=== PATIENT | female | born 1960 | race Caucasian/White ===

== ENCOUNTER → 2017-12-07 09:57 | Outpatient (CLI) | payer OTHER, SELFPAY ==
[2017-12-07 12:23] LABS: Absolute Neutrophil Count 3.3 X10^3/uL (2.0-7.7); Basophil# 0.02 X10^3/uL; Basophil% 0.4 % (0-1); Eosinophil# 0.14 X10^3/uL; Eosinophils% 2.6 % (0-5); Hemoglobin 14.1 g/dl (12.0-15.0); Mean Corp Hgb Conc 31.3 g/gl (32-36); Mean Corpuscular Hgb 26.6 pg (27.0-32.0); Mean Corpuscular Volume 84.7 fL (81-99); Mean Platelet Vol. 10.6 fl (6.2-12.0); Monocyte# 0.36 X10^3/uL; Monocyte% 6.6 % (0-10); Neutrophil # 3.26 X10^3/uL (2.7-7.7); Neutrophil % 59.4 % (47-70); Platelet Count 202 K/mm3 (150-450); RBC Distribution Width CV 14.7 % (11.6-14.6); RBC Distribution Width SD 45.7 fl (35.1-43.9); Red Blood Count 5.31 M/mm3 (4.2-5.4); White Blood Count 5.5 K/mm3 (4.4-11.0)
[2017-12-07 12:28] LABS: POSITIVE COUNT NO; POSITIVE DIFFERENTIAL NO; POSITIVE MORPHOLOGY NO
[2017-12-07 12:53] LABS: Anion Gap 7 (5-15); BUN 13 mg/dL (7-18); BUN/Creat Ratio 18.1 RATIO (10-20); Calcium,Total 8.7 mg/dL (8.5-10.1); Chloride 107 mmol/L (98-107); Creatinine, Serum 0.72 mg/dL (0.55-1.02); EST Glomerular Filtration Rate 88 mL/min (>60); Est Glom Filt Rate - Afr Amer 107 mL/min (>60); Glucose 127 mg/dL (74-106); Potassium 4.1 mmol/L (3.5-5.1); Sodium Level 140 mmol/L (136-145); Thyroid Stim Hormone (TSH) 2.24 uIU/mL (0.358-3.74)
== END ==
PROVIDERS: Family Provider Family Medicine; PCP Family Medicine; Visit Provider Family Medicine
DX: E11.9 Type 2 diabetes mellitus without complications (principal); E66.01 Morbid (severe) obesity due to excess calories
CPT/HCPCS: 36415; 80048; 84443; 85025

== ENCOUNTER → 2018-02-23 15:55 | Outpatient (CLI) | payer OTHER, SELFPAY ==
--- NOTE | 2018-02-23 15:56 | BI_ITS ---
MAMMOGRAPHY - BILATERAL SCREENING REASON FOR EXAM: Female, 58 years old. Routine annual screening examination. PERTINENT HISTORY: Grandmother with breast cancer. Aunt with breast cancer. History of the left breast discharge. TECHNIQUE: Digital bilateral breast mavis (3D mammographic acquisition) in the CC and MLO projections. 2-D mediolateral oblique (MLO) and craniocaudad (CC) views of both breasts were obtained. CAD: Full Field Digital Mammography with Computer Added Detection was performed. COMPARISON: Comparison is made with prior examination dated September 30, 2016. FINDINGS: Breast Composition: There are scattered areas of fibroglandular density. There are no dominant masses or suspicious calcifications. Stable benign-appearing bilateral axillary lymph nodes. No other significant abnormalities are identified. There has been no significant change since the prior study. BI/SCREENING MAMM (CAD), BILAT IMPRESSION: Stable bilateral screening mammogram. Yearly follow-up mammogram recommended. (A) ASSESSMENT CATEGORY: BIRADS Category 2: Benign. A letter regarding these results will be sent to the patient by the facility within 30 days. Approximately 10% of breast cancers are not detected by mammography. A normal mammogram should not delay biopsy of a clinically suspicious abnormality. [id number] Electronically Signed: Roger Birmingham MD at 8:48 EDT Tel [phone], Service support ,
== END ==
PROVIDERS: Family Provider Family Medicine; PCP Family Medicine; Visit Provider Obstetrics & Gynecology
DX: Z12.31 Encounter for screening mammogram for malignant neoplasm of breast (principal); Z80.3 Family history of malignant neoplasm of breast
CPT/HCPCS: 77063; 77067

== ENCOUNTER → 2019-02-22 16:56 | Outpatient (CLI) | payer OTHER, SELFPAY ==
--- NOTE | 2019-02-22 16:59 | BI_ITS ---
MAMMOGRAPHY - BILATERAL SCREENING REASON FOR EXAM: Female, 59 years old. Routine annual screening examination. PERTINENT HISTORY: Grandmother with breast cancer. Aunt with breast cancer. TECHNIQUE: Digital bilateral breast deborah (3D mammographic acquisition) in the CC and MLO projections. 2-D mediolateral oblique (MLO) and craniocaudad (CC) views of both breasts were obtained. CAD: Full Field Digital Mammography with Computer Added Detection was performed. COMPARISON: Comparison is made with prior examination dated February 23, 2015. FINDINGS: Breast Composition: There are scattered areas of fibroglandular density. There are no dominant masses or suspicious calcifications. Stable benign-appearing bilateral axillary lymph nodes. No other significant abnormalities are identified. There has been no significant change since the prior study. BI/SCREEN MAMM (CAD) W/DEBORAH BILAT IMPRESSION: Stable bilateral screening mammogram. Yearly follow-up mammogram recommended. (A) ASSESSMENT CATEGORY: BIRADS Category 2: Benign. A letter regarding these results will be sent to the patient by the facility within 30 days. Approximately 10% of breast cancers are not detected by mammography. A normal mammogram should not delay biopsy of a clinically suspicious abnormality. [id number] Electronically Signed: Roger Birmingham, at 8:25 EDT , Service support ,
== END ==
PROVIDERS: Family Provider Family Medicine; PCP Family Medicine; Referring Provider Nurse Practitioner Women's Health; Visit Provider Nurse Practitioner Women's Health
DX: Z12.31 Encounter for screening mammogram for malignant neoplasm of breast (principal)
CPT/HCPCS: 77063; 77067

== ENCOUNTER → 2019-09-27 09:28 | Outpatient (CLI) | payer OTHER, SELFPAY ==
[2019-03-22 13:18] VITALS: BMI 43.6
[2019-09-27 13:12] LABS: Anion Gap 5 (5-15); BUN 18 mg/dL (7-18); BUN/Creat Ratio 24.1 RATIO (10-20); Calcium,Total 8.9 mg/dL (8.5-10.1); Chloride 110 mmol/L (98-107); Cholesterol 146 mg/dL (200); Creatinine, Serum 0.75 mg/dL (0.55-1.02); EST Glomerular Filtration Rate 84 mL/min (>60); Est Glom Filt Rate - Afr Amer 102 mL/min (>60); Glucose 169 mg/dL (74-106); High Density Lipoprotein 49 mg/dL; Potassium 4.3 mmol/L (3.5-5.1); Sodium Level 140 mmol/L (136-145); Triglycerides 83 mg/dL; Very Low Density Lipoprotein 17 mg/dL (5-40)
[2019-09-27 13:22] LABS: Microalbumin,Random Urine 6.4 mg/L (NO RANGE EST.); Microalbumin:Creatinine Ratio 14.8 mg/g CRE (<30 mg/g CRE)
== END ==
PROVIDERS: PCP Family Medicine; Visit Provider Family Medicine
DX: E11.9 Type 2 diabetes mellitus without complications (principal)
CPT/HCPCS: 36415; 80048; 80061; 82043; 82570

== ENCOUNTER → 2020-03-13 12:55 | Outpatient (CLI) | payer OTHER, SELFPAY ==
[2019-03-22 13:18] VITALS: BMI 43.6
--- NOTE | 2020-03-13 12:56 | BI_ITS ---
MAMMOGRAPHY - BILATERAL SCREENING REASON FOR EXAM: Female, 60 years old. Routine annual screening examination. PERTINENT HISTORY: Grandmother with breast cancer. Aunt with breast cancer. TECHNIQUE: Digital bilateral breast deborah (3D mammographic acquisition) in the CC and MLO projections. 2-D mediolateral oblique (MLO) and craniocaudad (CC) views of both breasts were obtained. CAD: Full Field Digital Mammography with Computer Added Detection was performed. COMPARISON: Comparison is made with prior study dated 02/22/2019 and 02/23/2018. FINDINGS: Breast Composition: There are scattered areas of fibroglandular density. There are no dominant masses or suspicious calcifications. Stable benign appearing bilateral axillary lymph nodes. No other significant abnormalities are identified. There has been no significant change since the prior study. BI/SCREEN MAMM (CAD) W/DEBORAH BILAT IMPRESSION: Stable bilateral screening mammogram. Yearly follow-up mammogram recommended. (A) ASSESSMENT CATEGORY: BIRADS Category 2: Benign. A letter regarding these results will be sent to the patient by the facility within 30 days. Approximately 10% of breast cancers are not detected by mammography. A normal mammogram should not delay biopsy of a clinically suspicious abnormality. [id number] Electronically Signed: Roger Birmignham, at 14:34 EST , Service support ,
== END ==
PROVIDERS: PCP Family Medicine; Referring Provider Nurse Practitioner Women's Health; Visit Provider Nurse Practitioner Women's Health
DX: Z12.31 Encounter for screening mammogram for malignant neoplasm of breast (principal)
CPT/HCPCS: 77063; 77067

== ENCOUNTER → 2020-04-09 08:12 | Outpatient (CLI) | payer OTHER, SELFPAY ==
[2020-04-03 13:02] VITALS: BMI 44.3
[2020-04-09 12:45] LABS: Cholesterol 148 mg/dL (200); High Density Lipoprotein 47 mg/dL; Triglycerides 112 mg/dL; Very Low Density Lipoprotein 22 mg/dL (5-40)
[2020-04-09 12:53] LABS: Hemoglobin A1c 7.3 % (3.8-5.6)
== END ==
PROVIDERS: PCP Family Medicine; Visit Provider Family Medicine
DX: E11.9 Type 2 diabetes mellitus without complications (principal)
CPT/HCPCS: 36415; 80061; 83036

== ENCOUNTER 2020-07-10 16:21 | Outpatient (RCR) | payer OTHER, SELFPAY ==
[2020-04-03 13:02] VITALS: BMI 44.3
[2020-07-10] MEDS: COVID-19 VACC, MRNA(PFIZER)/PF 30 MCG/0.3 ML SYRINGE IM (17:25)
[2020-07-31] MEDS: COVID-19 VACC, MRNA(PFIZER)/PF 30 MCG/0.3 ML SYRINGE IM (17:00)
== END 2020-10-07 23:59 ==
LOC: IMMUN 16:21
PROVIDERS: PCP Family Medicine; Visit Provider Family Medicine
DX: Z23 Encounter for immunization (principal)
CPT/HCPCS: 0001A; 0002A; 91300

== ENCOUNTER → 2021-03-19 12:32 | Outpatient (CLI) | payer OTHER, SELFPAY ==
[2020-04-03 13:02] VITALS: BMI 44.3
--- NOTE | 2021-03-19 12:37 | BI_ITS ---
MAMMOGRAPHY - BILATERAL SCREENING REASON FOR EXAM: Female, 61 years old. Routine annual screening examination. PERTINENT HISTORY: Grandmother with breast cancer. Aunt with breast cancer. TECHNIQUE: Digital bilateral breast deborah (3D mammographic acquisition) in the CC and MLO projections. 2-D mediolateral oblique (MLO) and craniocaudad (CC) views of both breasts were obtained. CAD: Full Field Digital Mammography with Computer Added Detection was performed. COMPARISON: Comparison is made with prior study of 03/13/2020 and 02/22/2019. FINDINGS: Breast Composition: There are scattered areas of fibroglandular density. There are no dominant masses or suspicious calcifications. Stable small benign appearing bilateral axillary nodes. No other significant abnormalities are identified. There has been no significant change since the prior study. BI/SCRN MAMM (CAD)W/DEBORAH BILAT IMPRESSION: Stable bilateral screening mammogram. Yearly follow-up mammogram recommended. (A) ASSESSMENT CATEGORY: BIRADS Category 2: Benign. A letter regarding these results will be sent to the patient by the facility within 30 days. Approximately 10% of breast cancers are not detected by mammography. A normal mammogram should not delay biopsy of a clinically suspicious abnormality. [id number] Electronically Signed: Roger Birmingham MD at 14:13 EST , Service support ,
== END ==
PROVIDERS: PCP Family Medicine; Referring Provider Obstetrics & Gynecology; Visit Provider Obstetrics & Gynecology
DX: Z12.31 Encounter for screening mammogram for malignant neoplasm of breast (principal); Z80.3 Family history of malignant neoplasm of breast
CPT/HCPCS: 77063; 77067

== ENCOUNTER → 2021-11-26 | Outpatient (CLI) | payer OTHER, SELFPAY ==
[2021-11-26 11:19] LABS: AST(SGOT) 16 U/L (15-37); Alanine Aminotransfer ALT/SGPT 36 U/L (13-56); Albumin, Serum 3.6 g/dL (3.2-5.0); Alkaline Phosphatase 64 U/L (45-117); Anion Gap 7 (5-15); BUN 21 mg/dL (7-18); BUN/Creat Ratio 28.3 RATIO (10-20); Chloride 105 mmol/L (98-107); Cholesterol 156 mg/dL (200); Creatinine, Serum 0.74 mg/dL (0.55-1.02); EST Glomerular Filtration Rate 84 mL/min (>60); Est Glom Filt Rate - Afr Amer 102 mL/min (>60); Globulin 3.5 g/dL (2.2-4.2); Glucose 180 mg/dL (74-106); High Density Lipoprotein 50 mg/dL; Protein, Total 7.1 g/dL (6.4-8.2); Sodium Level 138 mmol/L (136-145); Triglycerides 99 mg/dL; Very Low Density Lipoprotein 20 mg/dL (5-40)
[2021-11-26 11:38] LABS: Microalbumin,Random Urine < 5.0 mg/L (NO RANGE EST.)
[2021-11-26 13:56] LABS: Hemoglobin A1c 7.7 % (3.8-5.6)
== END | disposition home or self-care (01) ==
LOC: MTLAB 07:20
PROVIDERS: PCP Family Medicine; Referring Provider Family Medicine; Visit Provider Family Medicine
DX: E11.9 Type 2 diabetes mellitus without complications (principal)
CPT/HCPCS: 36415; 80053; 80061; 82043; 82570; 83036

== ENCOUNTER → 2022-04-01 | Outpatient (CLI) | payer OTHER, SELFPAY ==
--- NOTE | 2022-04-01 13:29 | BI_ITS ---
MAMMOGRAPHY - BILATERAL SCREENING REASON FOR EXAM: Female, 62 years old. Routine annual screening examination. PERTINENT HISTORY: Grandmother with breast cancer. Aunt with breast cancer. TECHNIQUE: Digital bilateral breast deborah (3D mammographic acquisition) in the CC and MLO projections. 2-D mediolateral oblique (MLO) and craniocaudad (CC) views of both breasts were obtained. CAD: Full Field Digital Mammography with Computer Added Detection was performed. COMPARISON: Comparison is made with prior study dated 03/19/2021 and 03/13/2020. FINDINGS: Breast Composition: There are scattered areas of fibroglandular density. There are no dominant masses or suspicious calcifications. Stable benign-appearing bilateral axillary nodes. No other significant abnormalities are identified. There has been no significant change since the prior study. BI/SCRN MAMM (CAD)W/DEBORAH BILAT IMPRESSION: Stable bilateral screening mammogram. Yearly follow-up mammogram recommended. (A) ASSESSMENT CATEGORY: BIRADS Category 2: Benign. A letter regarding these results will be sent to the patient by the facility within 30 days. Approximately 10% of breast cancers are not detected by mammography. A normal mammogram should not delay biopsy of a clinically suspicious abnormality. [id number] Electronically Signed: Roger Birmingham MD at 14:26 EST ,
== END | disposition home or self-care (01) ==
LOC: OPBI 13:28
PROVIDERS: PCP Family Medicine; Visit Provider Obstetrics & Gynecology
DX: Z12.31 Encounter for screening mammogram for malignant neoplasm of breast (principal)
CPT/HCPCS: 77063; 77067

== ENCOUNTER → 2022-11-23 | Outpatient (CLI) | payer OTHER, SELFPAY ==
[2022-11-23 10:22] LABS: Absolute Lymphocyte Count 1.56 X10^3/uL (0.83-4.51); Absolute Neutrophil Count 3.6 X10^3/uL (2.0-7.7); Basophil# 0.03 X10^3/uL; Basophil% 0.5 % (0-1); Eosinophil# 0.14 X10^3/uL; Eosinophils% 2.5 % (0-5); Hematocrit 45.9 % (37-47); Hemoglobin 14.5 g/dL (12.0-15.0); Lymphocyte # 1.56 X10^3/ul (0.83-4.51); Lymphocyte % 27.4 % (19-41); Mean Corp Hgb Conc 31.6 g/dL (32-36); Mean Corpuscular Volume 85.3 fL (81-99); Mean Platelet Vol. 11.2 fl (6.2-12.0); Monocyte# 0.31 X10^3/uL; Monocyte% 5.4 % (0-10); NRBC Flagged by Analyzer 0 % (0-5); Neutrophil # 3.64 X10^3/uL (2.7-7.7); Neutrophil % 63.8 % (47-70); Platelet Count 228 K/mm3 (150-450); RBC Distribution Width CV 14.3 % (11.6-14.6); RBC Distribution Width SD 44.4 fl (35.1-43.9); Red Blood Count 5.38 M/mm3 (4.2-5.4); White Blood Count 5.7 K/mm3 (4.4-11.0)
[2022-11-23 10:31] LABS: Microalbumin,Random Urine 12.7 mg/L (NO RANGE EST.); Microalbumin:Creatinine Ratio 12.9 mg/g CRE (<30 mg/g CRE)
[2022-11-23 10:32] LABS: Hemoglobin A1c 7.1 % (3.8-5.6)
[2022-11-23 10:54] LABS: ALB/GLOB Ratio 1.1 RATIO (0.9-2.4); AST(SGOT) 16 U/L (15-37); Alanine Aminotransfer ALT/SGPT 36 U/L (13-56); Albumin, Serum 3.7 g/dL (3.2-5.0); Alkaline Phosphatase 61 U/L (45-117); Anion Gap 6 (5-15); BUN 16 mg/dL (7-18); BUN/Creat Ratio 22.4 RATIO (10-20); Calcium,Total 8.8 mg/dL (8.5-10.1); Chloride 109 mmol/L (98-107); Cholesterol 152 mg/dL (200); Creatinine, Serum 0.71 mg/dL (0.55-1.02); EST Glomerular Filtration Rate 88 mL/min (>60); Est Glom Filt Rate - Afr Amer 106 mL/min (>60); Globulin 3.4 g/dL (2.2-4.2); Glucose 183 mg/dL (74-106); High Density Lipoprotein 47 mg/dL; Potassium 4.2 mmol/L (3.5-5.1); Protein, Total 7.1 g/dL (6.4-8.2); Sodium Level 140 mmol/L (136-145); Triglycerides 122 mg/dL; Very Low Density Lipoprotein 24 mg/dL (5-40)
== END | disposition home or self-care (01) ==
LOC: MTLAB 09:06
PROVIDERS: PCP Family Medicine; Referring Provider Family Medicine; Visit Provider Family Medicine
DX: E11.9 Type 2 diabetes mellitus without complications (principal)
CPT/HCPCS: 36415; 80053; 80061; 82043; 82570; 83036; 85025

== ENCOUNTER → 2023-05-26 | Outpatient (CLI) | payer OTHER, SELFPAY ==
--- NOTE | 2023-05-26 13:00 | BI_ITS ---
MAMMOGRAPHY - BILATERAL SCREENING REASON FOR EXAM: Female, 63 years old. Routine annual screening examination. PERTINENT HISTORY: Grandmother with breast cancer. Aunt with breast cancer. TECHNIQUE: Digital bilateral breast deborah (3D mammographic acquisition) in the CC and MLO projections. 2-D mediolateral oblique (MLO) and craniocaudad (CC) views of both breasts were obtained. CAD: Full Field Digital Mammography with Computer Added Detection was performed. COMPARISON: Comparison is made with prior study dated April 01, 2022 and March 19, 2021. FINDINGS: Breast Composition: There are scattered areas of fibroglandular density. There are no dominant masses or suspicious calcifications. Stable small benign-appearing bilateral axillary lymph nodes. No other significant abnormalities are identified. There has been no significant change since the prior study. BI/SCRN MAMM (CAD)W/DEBORAH BILAT IMPRESSION: Stable bilateral screening mammogram. Yearly follow-up mammogram recommended. (A) ASSESSMENT CATEGORY: BIRADS Category 2: Benign. A letter regarding these results will be sent to the patient by the facility within 30 days. Approximately 10% of breast cancers are not detected by mammography. A normal mammogram should not delay biopsy of a clinically suspicious abnormality. [id number] Electronically Signed: Roger Birmingham MD at 14:49 EST ,
--- OUTSIDE RECORDS SUMMARY | 2023-05-26 13:26 | XMS RPT_ITS | CCD ---
Author Name Unknown Address [address] [place] [address] Organization [facility] Care Team Providers Care Tack Driller Name Role Phone Kaci Polo MD Unavailable [phone] Medications Completed/Discontinued Medications Medication Drug Class(es) Dates Sig (Normalized) Sig (Original) nystatin 713295 unt/ml topical cream (1 source) Polyene Antifungal Start: 01-17-2017 NYSTATIN 155304 UNIT/GM CREA twice daily as needed NYSTATIN [id number] Ana Mckeon [employer] Problems Problem Classification Problem Date Documented Da te Episodic/Chronic Unclassified (1 source) No current problems or disability 01-17-2017 Plan of Treatment Date Care Activity Detail Author [place] [facility] cassidy's Care Additional Source Comments FOR RECORDS PERTAINING TO PATIENTS WHO ARE OR HAVE BEEN ENROLLED IN A CHEMICAL DEPENDENCY/SUBSTANCEABUSE PROGRAM, SOME INFORMATION MAY BE OMITTED. This clinical summary was aggregated from multiple sources. Caution should be exercised in using it in the provision of clinical care. This summary normalizes information from multiple sources, and as a consequence, information in this document may materially change the coding, format and clinical context of patient data. In addition, data may be omitted in some cases. CLINICAL DECISIONS SHOULD BE BASED ON THE PRIMARY CLINICAL RECORDS. [employer] [facility]. provides no warranty or guarantee of the accuracy or completeness of information in this document.
== END | disposition home or self-care (01) ==
LOC: OPBI 12:56
PROVIDERS: PCP Family Medicine; Referring Provider Nurse Practitioner Women's Health; Visit Provider Nurse Practitioner Women's Health
DX: Z12.31 Encounter for screening mammogram for malignant neoplasm of breast (principal)
CPT/HCPCS: 77063; 77067

== ENCOUNTER → 2023-11-29 | Outpatient (CLI) | payer OTHER, SELFPAY ==
[2023-11-29 12:36] LABS: Absolute Lymphocyte Count 1.75 X10^3/uL (0.83-4.51); Absolute Neutrophil Count 3.4 X10^3/uL (2.0-7.7); Basophil# 0.03 X10^3/uL; Basophil% 0.5 % (0-1); Eosinophil# 0.14 X10^3/uL; Eosinophils% 2.5 % (0-5); Hematocrit 45.3 % (37-47); Hemoglobin 13.9 g/dL (12.0-15.0); Lymphocyte # 1.75 X10^3/ul (0.83-4.51); Lymphocyte % 30.6 % (19-41); Mean Corp Hgb Conc 30.7 g/dL (32-36); Mean Corpuscular Hgb 25.9 pg (27.0-32.0); Mean Corpuscular Volume 84.5 fL (81-99); Mean Platelet Vol. 10.8 fl (6.2-12.0); Monocyte# 0.38 X10^3/uL; Monocyte% 6.7 % (0-10); NRBC Flagged by Analyzer 0 % (0-5); Neutrophil % 59.5 % (47-70); Platelet Count 237 K/mm3 (150-450); RBC Distribution Width CV 14.8 % (11.6-14.6); RBC Distribution Width SD 45.4 fl (35.1-43.9); Red Blood Count 5.36 M/mm3 (4.2-5.4); White Blood Count 5.7 K/mm3 (4.4-11.0)
[2023-11-29 12:48] LABS: Microalbumin,Random Urine 7.1 mg/L (NO RANGE EST.); Microalbumin:Creatinine Ratio 9.3 mg/g CRE (<30 mg/g CRE)
[2023-11-29 12:53] LABS: ALB/GLOB Ratio 1.1 RATIO (0.9-2.4); AST(SGOT) 18 U/L (15-37); Alanine Aminotransfer ALT/SGPT 27 U/L (13-56); Albumin, Serum 3.8 g/dL (3.2-5.0); Alkaline Phosphatase 58 U/L (45-117); Anion Gap 7 (5-15); BUN 15 mg/dL (7-18); BUN/Creat Ratio 20.4 RATIO (10-20); Chloride 105 mmol/L (98-107); Cholesterol 159 mg/dL (200); Creatinine, Serum 0.73 mg/dL (0.55-1.02); EST Glomerular Filtration Rate 85 mL/min (>60); Est Glom Filt Rate - Afr Amer 102 mL/min (>60); Globulin 3.4 g/dL (2.2-4.2); Glucose 142 mg/dL (74-106); High Density Lipoprotein 57 mg/dL; Potassium 4.1 mmol/L (3.5-5.1); Protein, Total 7.2 g/dL (6.4-8.2); Sodium Level 139 mmol/L (136-145); Triglycerides 86 mg/dL; Very Low Density Lipoprotein 17 mg/dL (5-40)
[2023-11-29 14:06] LABS: Hemoglobin A1c 6.6 % (3.8-5.6)
== END | disposition home or self-care (01) ==
LOC: MTLAB 10:05
PROVIDERS: PCP Family Medicine; Referring Provider Family Medicine; Visit Provider Family Medicine
DX: Z00.00 Encounter for general adult medical examination without abnormal findings (principal); E66.01 Morbid (severe) obesity due to excess calories; E11.9 Type 2 diabetes mellitus without complications
CPT/HCPCS: 36415; 80053; 80061; 82043; 82570; 83036; 85025

== ENCOUNTER → 2024-05-31 | Outpatient (CLI) | payer MEDICARE, SELFPAY ==
--- NOTE | 2024-05-31 13:33 | BI_ITS ---
PROCEDURE: SCRN MAMM (CAD)W/DEBORAH BILAT REASON FOR EXAM: F, Age 64 y/o, grandmother with breast cancer. Aunt with breast cancer. TECHNIQUE: Bilateral screening digital breast tomosynthesis with 2D and 3D images. Computer aided detection. COMPARISON: Prior exam(s) dating back to comparison is made with prior study dated April 01, 2022.. FINDINGS: There are scattered areas of fibroglandular density. Stable small bilateral axillary lymph nodes. No suspicious masses, areas of developing architectural distortion, or suspicious calcifications. Stable examination. BI/SCRN MAMM (CAD)W/DEBORAH BILAT IMPRESSION: BI-RADS 2: BENIGN. RECOMMEND ANNUAL MAMMOGRAPHIC SCREENING. Follow-up code: Routine Follow-up The patient will be notified of the results by letter. Reading Location: [place] [id number]
== END | disposition home or self-care (01) ==
PROVIDERS: PCP Family Medicine; Referring Provider Family Medicine; Visit Provider Family Medicine
DX: Z12.31 Encounter for screening mammogram for malignant neoplasm of breast (principal)
CPT/HCPCS: 77063; 77067

== ENCOUNTER 2024-06-18 10:02 | Observation (INO) | payer MEDICARE, SELFPAY ==
[2024-06-18] VITALS (8 sets, daily range): BP systolic 148–194; BP diastolic 55–91; PULSE 87–103; RESP 16–28; TEMP 35.9–37; O2SAT 93–98; BMI 44.6; BMI 44.2
--- NOTE | 2024-06-18 10:21 | CT_ITS ---
EXAM: STROKE BRAIN/HEAD WITHOUT CONT CLINICAL HISTORY: Nausea and vomiting. Dizziness and weakness for 2 days. COMPARISON: None. TECHNIQUE: Multiple axial tomographic images were obtained without intravenous contrast administration. Coronal and sagittal reconstruction was obtained as well. FINDINGS: Normal cerebral parenchyma. No evidence of hydrocephalus. No acute abnormality is seen. CT/STROKE Brain/Head without Cont IMPRESSION: No acute abnormality is seen. The results were communicated to Dr. Khan the referring physician. Reading Location: [id number]
--- NOTE | 2024-06-18 10:23 | ED.VIS.STROK ---
HPI History of Present Illness Chief Complaint: Nausea/Vomiting/Diarrhea Informant: patient and spouse/S.O. Narrative Narrative: 64-year-old female presenting with vomiting started at the same time as vertigo yesterday around 1400 as she got out of bed, sudden onset. She states since then, whenever she gets up or moves her head the vertigo is worse, but it has never gone away and there is a mild baseline of spinning sensation. She states the vomiting does not seem to be associated with the vertigo as it worsens or lessens. She denies any abdominal pain or diarrhea. She has had some subjective fevers, feeling hot that seems to precede her vomiting. No recent URIs or other viral syndromes in the past couple weeks. She denies any earache, hearing change or tinnitus, or roaring/hearing disturbance. She denies headaches. She states has been difficult to focus with her vision but she denies any vision loss or field cuts. She states she has had difficulty with balance and walking since this started yesterday. She has never had vertigo before. She states she additionally feels little lightheaded, and like she needs some fluids because of vomiting. [facility] Medical History Family history of breast cancer History of uterine fibroid Seasonal allergies Rosacea Home Medications ?Medication ?Instructions ?Recorded ?Last Taken ?Type flaxseed oil 1,000 mg capsule 1,000 mg PO DAILY 04/03/20 06/17/24 History multivitamin 1 tab PO DAILY 04/03/20 06/17/24 History azelaic acid 15 % topical gel 1 applic topical BID 05/20/22 06/17/24 History (Finacea) metformin 500 mg tablet 500 mg PO BID 05/20/22 06/17/24 History albuterol sulfate 90 mcg/actuation 2 puff inhalation Q4-6H PRN 05/26/23 Unknown History aerosol inhaler shortness of breath or wheezing glipizide 10 mg tablet, extended 10 mg PO DAILY 05/26/23 06/17/24 History release 24 hr ipratropium bromide 21 mcg (0.03 2 spray intranasal BID PRN allergy 05/26/23 06/17/24 History %) nasal spray symptoms ascorbate calcium (vitamin C) 500 500 mg PO DAILY 06/18/24 06/17/24 History mg tablet pioglitazone 15 mg tablet 15 mg PO DAILY 06/18/24 06/17/24 History Allergy/AdvReac Type Severity Reaction Status Date / Time No Known Allergies Allergy Verified 06/07/24 13:49 Family History Father Diabetes Mother Crohns disease Grandmother Breast cancer Aunt Breast cancer Surgical History S/P CHELSIE (total abdominal hysterectomy) History of tonsillectomy Social History Smoking Status: Never smoker alcohol intake: current details: social substance use type: does not use caffeine: Yes what type of physical activity do you participate in: walking, bicycling and weight training frequency: 3-4 times per week seatbelt use: always do you feel safe at home: Yes additional social history: - [employer]- Retired Patient works at [employer] ED Constitutional Constitutional ED: Reports chills, fever(s) and subjective Eyes Eyes: Denies change in vision or diplopia ENT ENT ED: Reports vertigo; Denies abnormal hearing, ear pain, rhinorrhea, sore throat or tinnitus Cardiovascular Cardiovascular: Denies chest pain or palpitations Respiratory/Chest Respiratory/Chest: Denies cough or dyspnea Gastrointestinal Gastrointestinal: Reports nausea and vomiting; Denies abdominal pain or diarrhea Genitourinary Genitourinary ED: Denies dysuria or hematuria Musculoskeletal Musculoskeletal: Denies back pain or neck pain Integumentary Denies abscess or rash Neurologic Neurologic: Reports abnormal gait, disequilibrium and dizziness; Denies headache(s), paresthesias or weakness Psychiatric Psychiatric: Denies anxiety or suicidal thoughts EXAM Physical Exam Const Vital Signs: 06/18/24 10:03 06/18/24 10:21 06/18/24 10:21 Temperature 96.6 F L Temperature Source Temporal Pulse Rate 90 103 H Respiratory Rate 16 28 H Blood Pressure 194/78 H 169/73 H Blood Pressure Mean 116 105 Pulse Ox 98 97 98 Oxygen Delivery Method Room Air Room Air Room Air 06/18/24 12:03 Temperature Temperature Source Pulse Rate 92 Respiratory Rate 18 Blood Pressure 160/91 H Blood Pressure Mean 114 Pulse Ox 93 Oxygen Delivery Method Room Air Positive well nourished and well developed General Appearance ED: well developed and NAD HEENT Reports TM's clear and moist mucous membranes normocephalic and atraumatic Tympanic Membrane ED: Yes TM's clear Eyes PERRL and EOMs intact bilaterally Eyes Narrative: Non-fatigable horizontal nystagmus to the right at rest. No vertical, rotatory, nor direction changing nystagmus. Neck full ROM and supple Resp normal respiratory effort and clear to auscultation bilaterally Cardio regular rate, regular rhythm and no murmurs GI non-tender and non-distended Auscultation: normoactive bowel sounds Palpation: soft Back/Spine no CVA tenderness General Back: other FROM Extremity normal to inspection General Extremety ED: Negative for edema, pulses abnormal or tenderness General Extremity: Negative for edema or pulses abnormal Neuro oriented x3, CN's II-XII intact bilaterally and no sensory deficits noted Neuro Narrative: No dysmetria. No dysarthria. No aphasia. Sensorium / Orientation: awake and alert Motor Exam: strength 5/5 throughout Psych mental status grossly normal Skin no rashes or lesions noted and no wounds NIHSS NIHSS Initial: 1a Level of Consciousness: 0 1b LOC Questions (Score 2 if aphasic/stupor): 0 1c LOC Commands (Only score 1st attempt): 0 2 Best Gaze (If aphasic, use reflexive mvmts.): 0 3 Visual: 0 4 Facial Palsy: 0 5 Motor Arm Right (UN = amputation/fusion): 0 5 Motor Arm Left: 0 6 Motor Leg Right: 0 6 Motor Leg Left: 0 7 Limb ataxia (Only + if out of proportion): 0 8 Sensory (Aphasia/stupor=0 or 1, coma=2): 0 9 Best Language: 0 10 Dysarthria (mute, coma=2, intubated=UN): 0 11 Extinction and Inattention (only scored if +): 0 Total Score: 0 MDM MDM MDM Narrative Medical decision making narrative: Patient presenting with acute vestibular syndrome, however her blood pressure is concerning, elevated at 194/78 so considering the possibility of a posterior circulation infarct/stroke, and the patient is within 24 hours of the onset but outside of thrombolytic window, obtaining CT angiography of the head and neck as well as a plain CT phase of the head. In the meantime if she passes dysphagia screen we will also give her meclizine. Her NIH is 0. Her skew test is normal. She does not have nystagmus that changes directions, the fast components consistently to the right. With her jolt test, I am getting equivocal results. She states that is difficult to focus, but am not definitively consistently seen a catch-up saccade. For these reasons I think she needs to undergo the CT scanning in addition to treating her for the possibility of peripheral etiologies I spoke with radiologist concerning the CT scans, I reviewed them and on my interpretation there is no bleed or LVO, he was in agreement. Patient has passed her dysphagia screen so we gave her Zofran and meclizine. She states her symptoms are little better but on reevaluation, she still has persistent right sided nystagmus, and I repeated her jolt test, which is normal. This is concerning for possible central etiology and she still has vertiginous symptoms, and on reevaluation her blood pressure is 180/77. She needs to be admitted for further evaluation and MRI. Lab Data Attestation: I reviewed the patient's lab results. Labs: Laboratory Results - last 24 hr 06/18/24 06/18/24 06/18/24 10:30 11:30 12:45 WBC 7.4 RBC 5.41 H Hgb 14.5 Hct 45.9 MCV 84.8 MCH 26.8 L MCHC 31.6 L RDW Std Deviation 44.5 H RDW Coeff of Lee 14.4 Plt Count 226 MPV 10.9 Immature Gran % (Auto) 0.300 Neut % (Auto) 72.7 H Lymph % (Auto) 21.0 [place] % (Auto) 4.6 Eos % (Auto) 0.9 Baso % (Auto) 0.5 Absolute Neuts (auto) 5.4 Absolute Lymphs (auto) 1.55 Nucleated RBC % 0 Sodium Cancelled 137 Potassium Cancelled 4.5 Chloride Cancelled 109 H Carbon Dioxide Cancelled 20.0 L Anion Gap Cancelled 8 BUN Cancelled 14 Creatinine Cancelled 0.64 Estim Creat Clear Calc Cancelled 91.73 Est GFR (MDRD) Af Amer Cancelled 119 Est GFR (MDRD) Non-Af Cancelled 98 BUN/Creatinine Ratio Cancelled 21.7 H Glucose Cancelled 190 H Calcium Cancelled 8.4 L POC Glucose 171 H Radiography Diagnostic Testing: Clinical Impression(s) from Imaging Studies Brain CT 06/18/24 10:21 IMPRESSION: No acute abnormality is seen. The results were communicated to Dr. Khan the referring physician. Reading Location: [id number] Head/Neck CTA 06/18/24 10:52 IMPRESSION: RIGHT CAROTID: Minimal plaque at the origin of the left internal carotid artery causing less than 50% stenosis. LEFT CAROTID: Unremarkable VERTEBRALS: Unremarkable INTRACRANIAL: Unremarkable One or more dose reduction techniques were used (e.g., Automated exposure control, adjustment of the mA and/or kV according to patient size, use of iterative reconstruction technique). Reading Location: [id number] Rhythm Strip Rhythm Strip: Sinus Rhythm Rate: 87 Ectopy: None EKG Initial EKG: Attestation: I personally reviewed and interpreted this EKG as follows: Interpretation: Sinus Rhythm and No Acute Injury Pattern Comments: Nml axis & intervals; nml EKG Management Discussion w/another healthcare provider: Hospitalist and Radiologist Stroke Documentation Questions Stroke Team Activated: No (stroke not most likely etiology, NIH 0) Was Patient considered for Endovascular Intervention?: No-CTA negative, determined not to be an endovascular candidate IV Thrombolytic Administered: No (timing) Discharge Plan Dx/Rx/DC Orders Clinical Impression: Acute vestibular syndrome, Elevated blood pressure reading, Ataxia Disposition Disposition: Acute Care Hospital [facility]
[2024-06-18] MEDS: Meclizine HCl 25 MG Tablet PO (10:39)
[2024-06-18 10:41] LABS: Absolute Lymphocyte Count 1.55 X10^3/uL (0.83-4.51); Absolute Neutrophil Count 5.4 X10^3/uL (2.0-7.7); Basophil# 0.04 X10^3/uL; Basophil% 0.5 % (0-1); Eosinophil# 0.07 X10^3/uL; Eosinophils% 0.9 % (0-5); Hematocrit 45.9 % (37-47); Hemoglobin 14.5 g/dL (12.0-15.0); Lymphocyte # 1.55 X10^3/ul (0.83-4.51); Mean Corp Hgb Conc 31.6 g/dL (32-36); Mean Corpuscular Hgb 26.8 pg (27.0-32.0); Mean Corpuscular Volume 84.8 fL (81-99); Mean Platelet Vol. 10.9 fl (6.2-12.0); Monocyte# 0.34 X10^3/uL; Monocyte% 4.6 % (0-10); NRBC Flagged by Analyzer 0 % (0-5); Neutrophil # 5.35 X10^3/uL (2.7-7.7); Neutrophil % 72.7 % (47-70); Platelet Count 226 K/mm3 (150-450); RBC Distribution Width CV 14.4 % (11.6-14.6); RBC Distribution Width SD 44.5 fl (35.1-43.9); Red Blood Count 5.41 M/mm3 (4.2-5.4); White Blood Count 7.4 K/mm3 (4.4-11.0)
--- NOTE | 2024-06-18 10:52 | CT_ITS ---
PROCEDURE: STROKE CTA HEAD AND NECK W/CON REASON FOR EXAM: Nausea and vomiting. Dizziness and weakness for 2 days. TECHNIQUE: CTA imaging of the head and neck from the aortic arch to the skull vertex with intravenous contrast. 3D reconstructions. CONTRAST: COMPARISON: None. # of known CTs in the past 12 months: 0 # of known Cardiac Nuclear Medicine Studies in the past 12 months: 0 FINDINGS: Aortic Arch: Normal size and branching pattern. No significant atherosclerotic plaque. Brachiocephalic and Subclavians: Unremarkable RIGHT Carotid: Right CCA: Unremarkable. Right ICA: Minimal plaque at the origin of the right internal carotid artery. Maximum stenosis (NASCET): <50 % Right ECA: Unremarkable. LEFT Carotid: Left CCA: Unremarkable. Left ICA: Unremarkable. Maximum stenosis (NASCET): % Left ECA: Unremarkable. Vertebrals: Codominant. Arise from the subclavians. Both vertebrals form the basilar. RIGHT Vertebral: Unremarkable. LEFT Vertebral: Unremarkable. No intracranial aneurysms or large vascular malformations are identified. Anterior cerebral arteries: Unremarkable. Middle cerebral arteries: Unremarkable. Basilar artery: Unremarkable. Posterior cerebral arteries: Unremarkable. Other major branches of the posterior circulation: Unremarkable. Major venous structures: Unremarkable. Other findings: No lymphadenopathy. Lung apices are clear. Bones are unremarkable. CT/STROKE CTA Head AND Neck W/Con IMPRESSION: RIGHT CAROTID: Minimal plaque at the origin of the left internal carotid artery causing less than 50% stenosis. LEFT CAROTID: Unremarkable VERTEBRALS: Unremarkable INTRACRANIAL: Unremarkable One or more dose reduction techniques were used (e.g., Automated exposure contr ol, adjustment of the mA and/or kV according to patient size, use of iterative reconstruction technique). Reading Location: [id number]
[2024-06-18] MEDS: Ondansetron 4 MG/2 ML Vial IV (11:01)
[2024-06-18 12:07] LABS: Anion Gap 8 (5-15); BUN 14 mg/dL (7-18); BUN/Creat Ratio 21.7 RATIO (10-20); Calcium,Total 8.4 mg/dL (8.5-10.1); Chloride 109 mmol/L (98-107); Creatinine, Serum 0.64 mg/dL (0.55-1.02); EST Glomerular Filtration Rate 98 mL/min (>60); Est Glom Filt Rate - Afr Amer 119 mL/min (>60); Estimated Creatinine Clearance 91.73 ml/min; Glucose 190 mg/dL (74-106); Potassium 4.5 mmol/L (3.5-5.1); Sodium Level 137 mmol/L (136-145)
--- NOTE | 2024-06-18 12:56 | PCM.HP.STD ---
HPI - General General Date of Admission: 06/18/24 Date of Service: 06/18/24 Chief Complaint: Vertigo HPI Narrative BARBARA PANG, is a 64 F who presented to [facility] ED on 06/18/2024 with vertigo. Patient developed acute onset vertigo with nausea and vomiting on the afternoon of 06/17 around 2 PM. She noted that the vertigo was worse with movement and felt like the room was spinning. Started shortly after she got out of bed. It improved with rest but did not fully go away. She also reports mild subjective fevers along with this, stating that she feels hot prior to her vomiting. Denies any recent URIs or other viral syndromes in the past couple weeks. Denies any earache, hearing change or tinnitus. States it has been difficult to focus with her vision but she denies any vision loss or field cuts. She does report having difficulty with balance and walking since this started yesterday. She has never had vertigo before. Given these findings, she came in for further evaluation. In the ED she was found to be hypertensive to the 160s to 190s systolic. She denies any history of hypertension. She otherwise was hemodynamically stable on room air. Initial NIHSS score of 0. CT brain and CTA head/neck were unremarkable. However, given her new onset symptoms and concern for possible central etiology, hospitalist was contacted for admission. I saw the patient at bedside in the ED. Patient was laying back comfortably in bed and in no acute distress. She reported mild dizziness with nausea currently, improved from arrival. Continues to have significant dizziness with motion. She otherwise states that she is starting to feel hungry and would like to have some food soon. She denies any current fevers or chills. No other acute concerns at this time. [facility] Medical History Family history of breast cancer History of uterine fibroid Seasonal allergies Rosacea Home Medications ?Medication ?Instructions ?Recorded ?Last Taken ?Type flaxseed oil 1,000 mg capsule 1,000 mg PO DAILY 04/03/20 06/17/24 History multivitamin 1 tab PO DAILY 04/03/20 06/17/24 History azelaic acid 15 % topical gel 1 applic topical BID 05/20/22 06/17/24 History (Finacea) metformin 500 mg tablet 500 mg PO BID 05/20/22 06/17/24 History albuterol sulfate 90 mcg/actuation 2 puff inhalation Q4-6H PRN 05/26/23 Unknown History aerosol inhaler shortness of breath or wheezing glipizide 10 mg tablet, extended 10 mg PO DAILY 05/26/23 06/17/24 History release 24 hr ipratropium bromide 21 mcg (0.03 2 spray intranasal BID PRN allergy 05/26/23 06/17/24 History %) nasal spray symptoms ascorbate calcium (vitamin C) 500 500 mg PO DAILY 06/18/24 06/17/24 History mg tablet pioglitazone 15 mg tablet 15 mg PO DAILY 06/18/24 06/17/24 History Allergy/AdvReac Type Severity Reaction Status Date / Time No Known Allergies Allergy Verified 06/07/24 13:49 Family History Father Diabetes Mother Crohns disease Grandmother Breast cancer Aunt Breast cancer Surgical History S/P CHELSIE (total abdominal hysterectomy) History of tonsillectomy Social History Smoking Status: Never smoker alcohol intake: current details: social substance use type: does not use caffeine: Yes what type of physical activity do you participate in: walking, bicycling and weight training frequency: 3-4 times per week seatbelt use: always do you feel safe at home: Yes additional social history: - [employer]- Retired Patient works at [employer] Constitutional Constitutional: Denies chills, fatigue, fever(s) or weakness Eyes Eyes: Denies change in vision Cardiovascular Cardiovascular: Denies chest pain Respiratory/Chest Respiratory/Chest: Denies shortness of breath at rest Gastrointestinal Gastrointestinal: Denies abdominal pain Genitourinary Genitourinary: Denies dysuria Musculoskeletal Musculoskeletal: Denies arthralgias or myalgias Neurologic Neurologic: Reports disequilibrium and dizziness; Denies abnormal speech, confusion, focal weakness, headache(s), numbness or tingling Vital Signs Vital Signs Vital Signs: 06/18/24 10:03 06/18/24 10:21 06/18/24 10:21 Temperature 96.6 F L Temperature Source Temporal Pulse Rate 90 103 H Respiratory Rate 16 28 H Blood Pressure 194/78 H 169/73 H Blood Pressure Mean 116 105 Pulse Ox 98 97 98 Oxygen Delivery Method Room Air Room Air Room Air 06/18/24 12:03 Temperature Temperature Source Pulse Rate 92 Respiratory Rate 18 Blood Pressure 160/91 H Blood Pressure Mean 114 Pulse Ox 93 Oxygen Delivery Method Room Air Weight Weight: 121.7 kg Body Mass Index (BMI) 44.6 Physical Exam Const alert, oriented x3 and no apparent distress Constitutional Narrative: Pleasant upper middle-aged female, class III obesity, mildly fatigued appearing, otherwise laying back comfortably in bed, conversing normally, in no acute distress. General Appearance: cooperative and comfortable HEENT normocephalic, head/scalp atraumatic, hearing grossly normal bilaterally, nasal mucous membranes and turbinates normal and moist oral mucous membranes Eyes PERRL, EOMs intact bilaterally and conjunctivae normal Neck full ROM Chest inspection of chest normal Resp normal respiratory effort, normal air movement, no use of accessory muscles and clear to auscultation bilaterally Cardio regular rate, regular rhythm, no murmurs and peripheral pulses 2+ throughout GI normal to inspection, nondistended, normoactive bowel sounds, soft to palpation, non-tender and non-distended Back/Spine normal ROM Extremity normal to inspection, full ROM and no pedal edema Skin no rashes or lesions noted Neuro oriented x3, moves all extremities and no focal motor deficits Coordination / Balance: [id number] test normal Speech: speech normal Motor Exam: strength 5/5 throughout Psych mental status grossly normal Results Lab / Micro Data 06/18/24 10:30 06/18/24 11:30 Labs: Laboratory Results - last 24 hr 06/18/24 10:30: WBC 7.4, RBC 5.41 H, Hgb 14.5, Hct 45.9, MCV 84.8, MCH 26.8 L, MCHC 31.6 L, RDW Std Deviation 44.5 H, RDW Coeff of Lee 14.4, Plt Count 226, MPV 10.9, Immature Gran % (Auto) 0.300, Neut % (Auto) 72.7 H, Lymph % (Auto) 21.0, [place] % (Auto) 4.6, Eos % (Auto) 0.9, Baso % (Auto) 0.5, Absolute Neuts (auto) 5.4, Absolute Lymphs (auto) 1.55, Nucleated RBC % 0, Sodium Cancelled, Potassium Cancelled, Chloride Cancelled, Carbon Dioxide Cancelled, Anion Gap Cancelled, BUN Cancelled, Creatinine Cancelled, Estim Creat Clear Calc Cancelled, Est GFR (MDRD) Af Amer Cancelled, Est GFR (MDRD) Non-Af Cancelled, BUN/Creatinine Ratio Cancelled, Glucose Cancelled, Calcium Cancelled 06/18/24 11:30: Sodium 137, Potassium 4.5, Chloride 109 H, Carbon Dioxide 20.0 L, Anion Gap 8, BUN 14, Creatinine 0.64, Estim Creat Clear Calc 91.73, Est GFR (MDRD) Af Amer 119, Est GFR (MDRD) Non-Af 98, BUN/Creatinine Ratio 21.7 H, Glucose 190 H, Calcium 8.4 L Rhythm Strip Rhythm Strip: Sinus Rhythm Rate: 87 Ectopy: None Imaging Radiology Impression Brain CT 06/18/24 10:21 IMPRESSION: No acute abnormality is seen. The results were communicated to Dr. Khan the referring physician. Reading Location: [id number] Head/Neck CTA 06/18/24 10:52 IMPRESSION: RIGHT CAROTID: Minimal plaque at the origin of the left internal carotid artery causing less than 50% stenosis. LEFT CAROTID: Unremarkable VERTEBRALS: Unremarkable INTRACRANIAL: Unremarkable One or more dose reduction techniques were used (e.g., Automated exposure control, adjustment of the mA and/or kV according to patient size, use of iterative reconstruction technique). Reading Location: [id number] Assessment & Plan Assessment/Plan (1) Ataxia: (2) Elevated blood pressure reading: (3) Diabetes: PLAN: Plan Patient is a 64-year-old female who presented to [facility] ED on 06/18/2024 with new onset vertigo. 1. New onset vertigo, CVA rule out ? Admit under observation status to PCU. Neurology consulted. PT/OT/case management consulted. Orders placed per stroke protocol order set. CT brain and CTA head/neck negative. MRI brain and echo ordered. Lipid panel, A1c and TSH ordered. 2. Type 2 diabetes mellitus ? A1c 6.6%, stable from previous. Continue home metformin, will hold pioglitazone and glipizide while inpatient. No need to start sliding scale insulin with glucose checks with meals at this time. 3. Elevated BP readings ? BP elevated to the 160s to 190s systolic in the ED. Not starting any blood pressure medications for now as we are allowing permissive hypertension in setting of possible stroke. Monitor closely. 4. Class III obesity ? BMI 44 on admit. Encouraged lifestyle modifications. Complicates hospital course, care and prognosis. DVT prophylaxis: SCDs CODE STATUS: Full code, verified Expected disposition: Home, TBD Total clinical time spent by myself addressing the patient's medical issues, reviewing all the data, and collaborating with patient's care team: 55 minutes. Charges/Coding Visit Charges Inpatient E&M: 57775 Init Hosp L2
--- NOTE | 2024-06-18 13:02 | MRI_ITS ---
PROCEDURE: Noncontrast MRI of the brain. REASON FOR EXAM: Vertigo for 2 days. Unsteady gait. Evaluate for stroke. TECHNIQUE: Multiplanar, multisequence MRI images of the brain were obtained without IV contrast. CONTRAST: COMPARISON: Noncontrast CT brain 06/18/2024 FINDINGS: Bones of the calvarium are intact. Included upper cervical spinal cord unremarkable. The orbits, sella, and parasellar structures show no specific abnormality. Paranasal sinuses and mastoid air cells are clear. There is some nonspecific protuberance or convex margin of the soft tissues or subcutaneous fat of the anterior right frontal region on image 17 of the sagittal T1 sequence. No discrete soft tissue mass or underlying bony abnormality. Major basilar intracranial flow voids are present. No extra-axial fluid collection or midline shift. Ramirez-white matter differentiation is maintained. No cerebellopontine angle mass lesion. The basilar cisterns are clear. No areas of restricted diffusion. No significant focal white matter lesions on the FLAIR sequence. No middle ear effusion. Ventricles appear normal in caliber and configuration. MRI/Brain without Contrast IMPRESSION: No acute intracranial abnormality. No evidence of acute cerebral infarction. No significant focal white matter lesions. No middle ear effusion demonstrated. Nonspecific convex protuberance of the soft tissues/subcutaneous fat anterior s uperior left frontal region, without discrete measurable soft tissue mass or underlying bony abnormality. Suggest correlatio n with clinical exam findings. Reading Location: [facility]
--- NOTE | 2024-06-18 13:02 | ECHOCS_ITS ---
Reason For Study Reason For Study: TIA/CVA Procedure This was a 2D Doppler, Color Flow transthoracic echocardiogram. The study was technically difficult. Contrast injection was performed. Exam performed portable in ED. Left Ventricle Normal LV size. Mild concentric left ventricular hypertrophy. The left ventricular ejection fraction is 60 %. Stage 1 diastolic dysfunction. Right Ventricle Normal right ventricle. Atria The left and right atria are normal. Mitral Valve Trivial mitral valve insufficiency. Tricuspid Valve Trivial tricuspid valve insufficiency. Unable to estimate RV systolic pressure due to insufficient tricuspid regurgitant envelope. Aortic Valve Trisinus/trileaflet aortic valve. Pulmonic Valve The pulmonic valve is not well visualized. Great Vessels Normal sized aortic root. Pericardium/Pleural No pericardial effusion. Medication Diluted definity 1ml given slow IV push to enhance endocardial definition. MMode/2D Measurements & Calculations LVIDd: 4.5 cm IVSd: 1.1 cm Ao root diam: 3.1 cm LVIDs: 3.3 cm LVPWd: 1.2 cm LA dimension: 4.0 cm RVDd: 3.4 cm FS: 26.2 % LAV(MOD-bp): 52.1 ml LVAd ap4: 35.7 cm2 SV(MOD-sp4): 65.2 ml LAV(MOD-bp) Indexed: 23.3 ml/m2 LVLd ap4: 8.6 cm SI(MOD-sp4): 29.1 ml/m2 LAV(MOD-sp2): 41.2 ml EDV(MOD-sp4): 120.1 ml LAV(MOD-sp4): 56.4 ml EDV(sp4-el): 125.4 ml LVAs ap4: 22.4 cm2 LVLs ap4: 7.8 cm ESV(MOD-sp4): 54.9 ml ESV(sp4-el): 54.2 ml EF(MOD-sp4): 54.3 % EF(sp4-el): 56.8 % SV(sp4-el): 71.2 ml LA A4 area: 20.9 cm2 LA dimension(2D): 3.8 cm RA A4 area: 12.2 cm2 Time Measurements MV dec time: 0.14 sec Doppler Measurements & Calculations MV E max august: 76.9 cm/sec Lat Peak E' August: 12.8 cm/sec Med Peak E' August: 8.4 cm/sec MV A max august: 120.0 cm/sec E/E' lat: 6.0 E/E' med: 9.2 MV E/A: 0.64 MV V2 max: 103.9 cm/sec MV dec slope: 548.1 cm/sec2 Ao V2 max: 130.5 cm/sec MV max P.3 mmHg Ao max P.8 mmHg MV V2 mean: 62.4 cm/sec Ao V2 mean: 92.4 cm/sec MV mean P.9 mmHg Ao mean P.9 mmHg MV V2 VTI: 16.5 cm Ao V2 VTI: 29.0 cm AV (velocity ratio): 0.77 LV V1 max: 102.0 cm/sec PA V2 max: 88.7 cm/sec LV V1 max P.2 mmHg LV V1 mean P.5 mmHg LV V1 mean: 75.1 cm/sec LV V1 VTI: 22.5 cm ECHO/Echo Complete W/ Contrast Interpretation Summary Mild concentric left ventricular hypertrophy. The left ventricular ejection fraction is 60 %. Stage 1 diastolic dysfunction. The study was technically difficult. Ordering Physician: Godwin Lucas Referring Physician: Cris Hammond Performed By: Fermin Farr RCS
[2024-06-18 13:03] LABS: Bedside Glucose 171 mg/dL (74-106)
[2024-06-18 14:13] LABS: Hemoglobin A1c 6.6 % (3.8-5.6)
[2024-06-18] MEDS: Atorvastatin Calcium 80 MG Tablet PO (21:40)
[2024-06-18] MEDS: 0.9% Saline Lock 10 ML Syringe IV (21:43)
[2024-06-19 03:59] VITALS: BP 141/77; PULSE 87; RESP 17; TEMP 36.4; O2SAT 95
[2024-06-19 05:59] LABS: Hemoglobin 13.4 g/dL (12.0-15.0); Mean Corp Hgb Conc 31.2 g/dL (32-36); Mean Corpuscular Hgb 26.5 pg (27.0-32.0); Mean Corpuscular Volume 85.1 fL (81-99); Mean Platelet Vol. 10.5 fl (6.2-12.0); Platelet Count 240 K/mm3 (150-450); RBC Distribution Width CV 14.5 % (11.6-14.6); RBC Distribution Width SD 44.7 fl (35.1-43.9); Red Blood Count 5.05 M/mm3 (4.2-5.4); White Blood Count 7.1 K/mm3 (4.4-11.0)
[2024-06-19 06:31] LABS: Anion Gap 7 (5-15); BUN 12 mg/dL (7-18); BUN/Creat Ratio 17.7 RATIO (10-20); Calcium,Total 8.9 mg/dL (8.5-10.1); Chloride 110 mmol/L (98-107); Cholesterol 119 mg/dL (200); Creatinine, Serum 0.68 mg/dL (0.55-1.02); EST Glomerular Filtration Rate 92 mL/min (>60); Est Glom Filt Rate - Afr Amer 112 mL/min (>60); Estimated Creatinine Clearance 91.29 ml/min; Glucose 149 mg/dL (74-106); High Density Lipoprotein 42 mg/dL; Potassium 3.9 mmol/L (3.5-5.1); Sodium Level 143 mmol/L (136-145); Triglycerides 97 mg/dL; Very Low Density Lipoprotein 19 mg/dL (5-40)
[2024-06-19 07:59] VITALS: O2SAT 96
[2024-06-19 10:21] VITALS: BMI 44.2
[2024-06-19] MEDS: Multivitamins,Therapeutic Tablet 1 TABLET PO (10:36)
[2024-06-19] MEDS: Ascorbic Acid 500 MG Tablet PO (10:36)
[2024-06-19 10:37] VITALS: BP 140/56; PULSE 88; RESP 16; TEMP 37.1; O2SAT 98
[2024-06-19 12:34] VITALS: BMI 44.2
--- NOTE | 2024-06-19 13:43 | NEURO.CONS ---
Assessment and Plan: Neuro Assessment/Plan BARBARA PANG is a 64 F with a past medical history of diabetes, being evaluated by Teleneurology for dizziness. Symptoms suggestive of oscillopsia and BPPV. Exam with rotational nystagmus to the R consistent with BPPV. No evidence of strokey symptoms Plan: - outpatient PT and vestibular therapy - task PT to conduct Maria Isabel maneuver I personally attended this patient and spent a total time of 45minutes evaluating this patient including clinical assessment, review of chart, medical history imaging, and determining appropriate treatment and workup. HPI Consult Data Date of Consult: 06/19/24 HPI Narrative HPI Narrative: BARBARA PANG, is a 64 F who presented to [facility] ED on 06/18/2024 with vertigo. Patient developed acute onset vertigo with nausea and vomiting on the afternoon of 06/17 around 2 PM. She noted that the vertigo was worse with movement and felt like the room was spinning. Started shortly after she got out of bed. It improved with rest but did not fully go away. She also reports mild subjective fevers along with this, stating that she feels hot prior to her vomiting. Denies any recent URIs or other viral syndromes in the past couple weeks. Denies any earache, hearing change or tinnitus. States it has been difficult to focus with her vision but she denies any vision loss or field cuts. She does report having difficulty with balance and walking since this started yesterday. She has never had vertigo before. Given these findings, she came in for further evaluation. In the ED she was found to be hypertensive to the 160s to 190s systolic. She denies any history of hypertension. She otherwise was hemodynamically stable on room air. Initial NIHSS score of 0. Nelog[employer] Consultation Angelic she looks at something she is noticing oscillopsia. PT was in with the patient today but did not perform maneurvers per pt. Tuesday morning felt dizzy and lightheaded and initially thought she was hypoglycemic (she was not). She did fine the rest of the day but then after muslim started throwing up severely. That continued until bedtime. And would get better after sitting for a while but then would suddenly get worse. When turning her head she would get instantly sick. No numbness or weakness more on one side than another, no change in voice, no change in vision except that it is moving. No new medications recently. This never happened in the past. No change in hearing, no tinnitus. Vertigo with head movement improved with meclizine. [facility] Medical History Family history of breast cancer History of uterine fibroid Seasonal allergies Rosacea Home Medications ?Medication ?Instructions ?Recorded ?Last Taken ?Type flaxseed oil 1,000 mg capsule 1,000 mg PO DAILY 04/03/20 06/17/24 History multivitamin 1 tab PO DAILY 04/03/20 06/17/24 History azelaic acid 15 % topical gel 1 applic topical BID 05/20/22 06/17/24 History (Finacea) metformin 500 mg tablet 500 mg PO BID 05/20/22 06/17/24 History albuterol sulfate 90 mcg/actuation 2 puff inhalation Q4-6H PRN 05/26/23 Unknown History aerosol inhaler shortness of breath or wheezing glipizide 10 mg tablet, extended 10 mg PO DAILY 05/26/23 06/17/24 History release 24 hr ipratropium bromide 21 mcg (0.03 2 spray intranasal BID PRN allergy 05/26/23 06/17/24 History %) nasal spray symptoms pioglitazone 15 mg tablet 15 mg PO DAILY 06/18/24 06/17/24 History meclizine 25 mg tablet 25 mg PO TID PRN PRN Dizziness 3 06/19/24 Unknown Rx days #9 tabs Allergy/AdvReac Type Severity Reaction Status Date / Time No Known Allergies Allergy Verified 06/07/24 13:49 Family History Father Diabetes Mother Crohns disease Grandmother Breast cancer Aunt Breast cancer Surgical History S/P CHELSIE (total abdominal hysterectomy) History of tonsillectomy Social History Smoking Status: Never smoker alcohol intake: current details: social substance use type: does not use caffeine: Yes what type of physical activity do you participate in: walking, bicycling and weight training frequency: 3-4 times per week seatbelt use: always do you feel safe at home: Yes additional social history: - Aramis- Retired Patient works at [employer] Vital Signs Vital Signs Vital Signs: 06/18/24 14:27 06/18/24 14:30 06/18/24 14:54 Temperature 98.0 F Temperature Source Oral Pulse Rate 91 Pulse Strength Respiratory Rate 16 Respiratory Effort Normal Non-Labored Respiratory Depth Normal Respiratory Pattern Normal Blood Pressure 148/55 H Blood Pressure Mean 86 Blood Pressure Source Monitor Blood Pressure Position Semi-Fowlers Blood Pressure Location Left Arm Pulse Ox 98 98 Oxygen Delivery Method Room Air Room Air Room Air 06/18/24 16:40 06/18/24 19:56 06/18/24 21:03 Temperature 97.7 F L 98.1 F Temperature Source Oral Oral Pulse Rate 96 87 Pulse Strength Respiratory Rate 16 16 Respiratory Effort Normal Non-Labored Respiratory Depth Normal Respiratory Pattern Blood Pressure 156/89 H 157/82 H Blood Pressure Mean 111 107 Blood Pressure Source Monitor Monitor Blood Pressure Position Semi-Fowlers Semi-Fowlers Blood Pressure Location Right Forearm Left Arm Pulse Ox 97 98 Oxygen Delivery Method Room Air Room Air Room Air 06/19/24 03:59 06/19/24 07:59 06/19/24 08:32 Temperature 97.6 F L Temperature Source Oral Pulse Rate 87 Pulse Strength Respiratory Rate 17 Respiratory Effort Normal Non-Labored Respiratory Depth Normal Respiratory Pattern Normal Blood Pressure 141/77 H Blood Pressure Mean 98 Blood Pressure Source Monitor Blood Pressure Position Left Lateral Blood Pressure Location Right Arm Pulse Ox 95 96 Oxygen Delivery Method Room Air Room Air Room Air 06/19/24 10:00 06/19/24 10:37 Temperature 98.7 F Temperature Source Oral Pulse Rate 88 Pulse Strength Weak (1+) Respiratory Rate 16 Respiratory Effort Respiratory Depth Respiratory Pattern Blood Pressure 140/56 H Blood Pressure Mean 84 Blood Pressure Source Monitor Blood Pressure Position Semi-Fowlers Blood Pressure Location Right Forearm Pulse Ox 98 Oxygen Delivery Method Room Air Weight Weight: 120.7 kg Body Mass Index (BMI) 44.2 EEG Results Procedure Details EEG Procedure Details: BARBARA PANG is a 64 year old F with a past medical history of , who presents for evaluation of Electroencephalogram on DATE at TIME NIHSS NIHSS Nursing Documentation NIHSS Nursing Documentation: NIHSS: Ischemic Stroke/TIA Start: 06/18/24 14:15 Text: For PCU Patients: NIH and Neuro Check every 4 Status: Complete hours, PRN and with change in RN caregiver. Freq: [id number] Protocol: Activity Type Activity Date Activity User E-sign Co-sign Detail Recorded Client Recorded Date Recorded By Document 06/18/24 16:37 NADINE [id number] 06/18/24 18:54 NADINE 06/18/24 16:37 NIH Stroke Scale [NIHSS] A score of 0 is normal or asymptomatic . Total possible score is 42. Inpatient: RN or Physician to activate a stroke alert for onset of new stroke symptoms or with NIHSS increase >/= 3 points. Following change in neurological status, NIHSS will be performed per physician order or more frequently PRN. -1a. Level of Consciousness Alert; keenly responsive -1b. LOC Questions Answers BOTH questions correctly. -1c. LOC Commands Performs both tasks correctly . -2. Best Gaze Normal -3. Visual No visual loss -4. Facial Palsy Normal symmetrical movements -5a. Left Arm No drift; arm holds 90 (or 45 ) degrees for full 10 seconds -5b. Right Arm No drift; arm holds 90 (or 45 ) degrees for full 10 seconds -6a. Left Leg No drift; leg holds 30-degree position for full 5 seconds -6b. Right Leg No drift; leg holds 30-degree position for full 5 seconds -7. Limb Ataxia Absent -8. Sensory Normal; no sensory loss -9. Best Language No aphasia; normal -10. Dysarthria Normal -11. Extinction and Inattention No abnormality -Total 0 Query Text:A score of 0 is normal or asymptomatic. Total possible score is 42 . ED: Notify Physician for NIHSS increase by > / = 3 points. Inpatient: RN or Physician to activate a stroke alert for NIHSS increase of > / = 3 points. Coma Scale [Assess] -Eye Opening Spontaneous -Motor Obeys Commands -Verbal Oriented [Total] -Coma Scale Total 15 Physical Exam Narrative -? General: Laying comfortably in bed; in no acute distress. -? HENT: Normal oropharynx and mucosa. Normal external appearance of ears and nose. Exophthalmos. -? Neck: Supple, no pain or tenderness -? CV:? No peripheral edema. -? Pulmonary:? Normal respiratory effort. -? Ext: No cyanosis, edema, or deformity -? Skin: No rash. Normal palpation of skin.? -? Musculoskeletal: full range of motion; no joint tenderness. Normal digits and nails by inspection. No clubbing. -? NEURO: -? Mental Status: The patient was alert and oriented to time, place, and person. Normal recent/remote memory, concentration, and general fund of knowledge. -? Language: speech is clear.? Naming, repetition, fluency, and comprehension intact. -? Cranial Nerves: PERRL 4mm/brisk. EOMI, visual barboza full, no facial asymmetry, facial sensation intact, hearing intact, tongue midline, no evidence of atrophy or fibrillations. Nystagmus with fast phase to the R and worse on R gaze, there is rotational component no vertical component -? Motor: normal bulk, tone, and strength throughout. No pronator drift or satelliting. Upper and lower extremities equal bilaterally. -?5Detailed strength exam as performed by the nurse/SANDRA and witnessed by the physician: R L SA 5 5 EE EF 5 5 WE WF Bench Repair Technician 5 5 HF 5- 5- KE KF 5 5 DF 5 5 PF -? Tone: is normal and bulk is normal -? Sensation- Intact to light touch bilaterally -? Coordination: No dysmetria on [id number], finger follow finger or [id number]. -? Gait-deferred Lab / Micro Data 06/19/24 05:28 06/19/24 05:28 Labs: Laboratory Results - last 24 hr 06/18/24 10:30: Hemoglobin A1c 6.6 H 06/18/24 11:30: TSH 1.220 06/19/24 05:28: WBC 7.1, RBC 5.05, Hgb 13.4, Hct 43.0, MCV 85.1, MCH 26.5 L, MCHC 31.2 L, RDW Std Deviation 44.7 H, RDW Coeff of Lee 14.5, Plt Count 240, MPV 10.5, Sodium 143, Potassium 3.9, Chloride 110 H, Carbon Dioxide 26.0, Anion Gap 7, BUN 12, Creatinine 0.68, Estim Creat Clear Calc 91.29, Est GFR (MDRD) Af Amer 112, Est GFR (MDRD) Non-Af 92, BUN/Creatinine Ratio 17.7, Glucose 149 H, Calcium 8.9, Triglycerides 97, Cholesterol 119, LDL Cholesterol 58, VLDL Cholesterol 19, HDL Cholesterol 42 Micro: Microbiology 06/18/24 13:46 Mucosa - Nose SARS-CoV-2, Influenza & RSV (PCR) - Final Rhythm Strip Rhythm Strip: Sinus Rhythm Rate: 87 Ectopy: None Imaging Radiology Impression Brain MRI 06/18/24 13:02 IMPRESSION: No acute intracranial abnormality. No evidence of acute cerebral infarction. No significant focal white matter lesions. No middle ear effusion demonstrated. Nonspecific convex protuberance of the soft tissues/subcutaneous fat anterior superior left frontal region, without discrete measurable soft tissue mass or underlying bony abnormality. Suggest correlation with clinical exam findings. Reading Location: [facility] Echocardiogram 06/18/24 13:02 Interpretation Summary Mild concentric left ventricular hypertrophy. The left ventricular ejection fraction is 60 %. Stage 1 diastolic dysfunction. The study was technically difficult. Ordering Physician: Godwin Lucas Referring Physician: Cris Hammond Performed By: Fermin Farr RCS Active Medications Active Medications Active Medications: Current Medications Generic Name Dose Route Start Last Admin Trade Name Freq PRN Reason Stop Dose Admin Acetaminophen 650 mg 06/18/24 14:15 Acetaminophen 325 Mg Tablet PO Q6H PRN PRN Pain 1-10 Or Fever>100.7 Albuterol Sulfate 2.5 mg 06/18/24 14:21 Albuterol 2.5 Mg/3 Ml Vial.Neb. INHALATION Q4H PRN PRN shortness of breath or wheezing Ascorbic Acid 500 mg 06/19/24 10:00 06/19/24 10:36 Ascorbic Acid 500 Mg Tablet PO 500 mg DAILY JAYY Administration Hydralazine HCl 5 mg 06/18/24 14:15 Hydralazine 20 Mg/Ml Vial IV 06/19/24 14:15 Q30M PRN maintain BP parameters with HR <60 Ipratropium Palmetto 1 spray 06/18/24 14:22 Ipratropium Palmetto 0.06% Nasal [place] NASAL BID PRN allergy symptoms Labetalol HCl 10 - 20 mg 06/18/24 14:15 Labetalol 20mg/4ml Syringe IV 06/19/24 14:15 Q10M PRN PRN maintain BP parameters with HR >/=60 Meclizine HCl 25 mg 06/19/24 07:45 Meclizine Hcl 25 Mg Tablet PO TID PRN PRN DIZZINESS Melatonin 3 mg 06/18/24 14:15 Melatonin 3 Mg Tablet PO QHS PRN PRN INSOMNIA Metformin HCl 500 mg 06/20/24 10:00 Metformin Hcl 500 Mg Tablet PO DAILY JAYY Multivitamins 1 tablet 06/19/24 08:00 06/19/24 10:36 Multivitamins,Therapeutic Tablet PO 1 tablet DAILYCM JAYY Administration Ondansetron HCl 4 mg 06/18/24 14:15 Ondansetron 4 Mg/2 Ml Vial IV Q8H PRN PRN NAUSEA/VOMITING Sodium Chloride 10 - 40 ml 06/18/24 14:18 06/18/24 21:43 0.9% Saline Lock 10 Ml Syringe IV 10 ml UD PRN Administration SALINE FLUSH
--- NOTE | 2024-06-19 14:00 | CASEMGMT ---
Met with patient to complete MCQUEEN form. MCQUEEN form explained to patient who voiced understanding and signed form. Original form placed in pt?s chart and copy provided to patient. Patricia Lopez, Discharge Planning Asst
[2024-06-19] MEDS: Bisacodyl 5 MG Tablet 10 MG PO (15:35)
[2024-06-19] MEDS: Meclizine HCl 25 MG Tablet PO (15:36)
[2024-06-19 15:41] VITALS: BP 160/93; PULSE 85; RESP 18; TEMP 36.4; O2SAT 100
--- NOTE | 2024-06-19 15:58 | DCINST_ITS ---
Discharge Instructions Diet Discharge Diet: No restrictions DC O2, CPAP, BIPAP needs Home O2 Discharge instructions: No Dressing / Incision Discharge Activity: No Restrictions Follow Up Care Test Results: Test results from this visit will be discussed in further detail at your follow- up appointment, if applicable. Discharge Plan Admission Admit Date/Time: 06/18/24 12:56 Primary Reason for Your Visit: Vertigo Attending Provider: Godwin Lucas Primary Care Provider: Cris Hammond Consulting Providers: Geoffrey Clark; Tyree Peterson; Josie Monroe; Rachna Brown; Tiera Vernon; Christiano Adams; Harriett Do; Jed Sykes; Isaiah Camp; Ede Sanchez; Aleisha Perez; Romaine Bryant; Tonja Jasmine; Zayda Awan; Kyle Newman; Mario Mathisa; Gómez Coughlin; Dov Blanton; Olya Wong; Angelica Odell Instructions Additional Instructions / Restrictions: Please take meclizine up to 3 times daily as needed for the next 3 days. Please follow-up with vestibular therapy with physical therapy for your vertigo. Follow-up with your primary care doctor as needed. Discharge Orders/Prescriptions Prescriptions: New meclizine 25 mg Tablet 25 mg PO TID PRN PRN (Reason: Dizziness) 3 Days Qty: 9 0RF Continued flaxseed oil 1,000 mg capsule 1,000 mg PO DAILY Rx Instructions: administer with a meal multivitamin Tablet 1 tab PO DAILY metformin 500 mg tablet 500 mg PO BID Patient Comments: PT STATES SHE TAKES ONCE DAILY, MD AWARE azelaic acid [Finacea] 15 % gel 1 applic topical BID albuterol sulfate 90 mcg/actuation HFA aerosol inhaler 2 puff inhalation Q4-6H PRN (Reason: shortness of breath or wheezing) ipratropium bromide 21 mcg (0.03 %) spray,non-aerosol 2 spray intranasal BID PRN (Reason: allergy symptoms) glipizide 10 mg tablet extended release 24hr 10 mg PO DAILY pioglitazone 15 mg tablet 15 mg PO DAILY Referrals / Follow Up: Cris Hammond MD [Primary Care Provider] - Disposition Disposition (needs filled in before D/C Order can be placed): Home, Self Care
[2024-06-19 16:01] VITALS: BP 160/93; PULSE 85; RESP 18; TEMP 36.4; O2SAT 100
--- NOTE | 2024-06-19 16:01 | PCM.DC.SUM ---
Providers Date of Admission: 06/18/24 Date of Discharge: 06/19/24 Primary Care Physician: Dr. Cris Hammond MD Consultations 06/18/24 14:15 Consult: Tele-Neurology Routine Consulting Provider: [facility] Reason for Consult: Acute Ischemic Stroke/TIA EMERGENT Consult: No MD Notified: Yes Date Notified: 06/18/24 Time Notified: 14:28 Method of Notification: Answering Service Nursing Unit Staff Notify [facility] of Tele-Neurology Consult: Yes Reason For Visit: STROKELIKE SYMPTOMS Diagnosis Discharge Diagnosis (1) Ataxia: Status: Acute Code(s): R27.0 - Ataxia, unspecified (2) Elevated blood pressure reading: Status: Acute Code(s): R03.0 - Elevated blood-pressure reading, without diagnosis of hypertension (3) Diabetes: Status: Acute Code(s): E11.9 - Type 2 diabetes mellitus without complications Medications at Discharge Home Medications flaxseed oil 1,000 mg capsule 1,000 mg PO DAILY 04/03/20 multivitamin 1 tab PO DAILY 04/03/20 azelaic acid 15 % topical gel (Finacea) 1 applic topical BID 05/20/22 metformin 500 mg tablet 500 mg PO BID 05/20/22 albuterol sulfate 90 mcg/actuation aerosol inhaler 2 puff inhalation Q4-6H PRN shortness of breath or wheezing 05/26/23 glipizide 10 mg tablet, extended release 24 hr 10 mg PO DAILY 05/26/23 ipratropium bromide 21 mcg (0.03 %) nasal spray 2 spray intranasal BID PRN allergy symptoms 05/26/23 pioglitazone 15 mg tablet 15 mg PO DAILY 06/18/24 meclizine 25 mg tablet 25 mg PO TID PRN PRN Dizziness 3 days #9 tabs 06/19/24 Hospital Course Operations None Procedures EKG, Transthoracic echo and - (CT brain, CTA head/neck, MRI brain) Summary of Care Provided Minutes Spent on Discharge: 35 Hospital Course: Patient is a 64-year-old female who presented to [facility] ED on 06/18/2024 with new onset vertigo. Short hospital course is notable low. Patient discharged home in stable condition on 06/19. 1. New onset vertigo, CVA ruled out ? Neurology followed. PT/OT/case management followed. CT brain, CTA head/neck and MRI brain unremarkable. Echo with normal EF and otherwise unremarkable. Lipid panel and TSH normal. A1c 6.6%, stable from previous. Per neurology, symptoms most consistent with BPPV. Recommended 3 days of meclizine as needed and vestibular therapy on discharge. Discharged home in stable condition on 06/19. 2. Type 2 diabetes mellitus ? A1c 6.6%, stable from previous. Treated with only home metformin while inpatient. Continue home metformin, pioglitazone and glipizide on discharge. 3. Elevated BP readings ? BP elevated to the 160s to 190s systolic in the ED. Not starting any blood pressure medications for now as we are allowing permissive hypertension in setting of possible stroke. Improving by hospital day 2, opted not to start any antihypertensive agents and recommend close outpatient follow-up with PCP for this. 4. Class III obesity ? BMI 44 on admit. Encouraged lifestyle modifications. Complicated hospital course, care and prognosis. Total clinical time spent by myself addressing the patient's medical issues, reviewing all the data, and collaborating with patient's care team: 35 minutes. Physical Exam Const alert, oriented x3 and no apparent distress Constitutional Narrative: Pleasant upper middle-aged female, class III obesity, mildly fatigued appearing, otherwise laying back comfortably in bed, conversing normally, in no acute distress. Stable. General Appearance: cooperative and comfortable HEENT normocephalic, head/scalp atraumatic, hearing grossly normal bilaterally, nasal mucous membranes and turbinates normal and moist oral mucous membranes Eyes PERRL, EOMs intact bilaterally and conjunctivae normal Neck full ROM Chest inspection of chest normal Resp normal respiratory effort, normal air movement, no use of accessory muscles and clear to auscultation bilaterally Cardio regular rate, regular rhythm, no murmurs and peripheral pulses 2+ throughout GI normal to inspection, nondistended, normoactive bowel sounds, soft to palpation, non-tender and non-distended Back/Spine normal ROM Extremity normal to inspection, full ROM and no pedal edema Skin no rashes or lesions noted Neuro oriented x3, moves all extremities and no focal motor deficits Coordination / Balance: [id number] test normal Speech: speech normal Motor Exam: strength 5/5 throughout Psych mental status grossly normal Weight / BMI Weight Weight: 120.7 kg Body Mass Index (BMI) 44.2 ABG / Lab / Microbiology Data 06/19/24 05:28 06/19/24 05:28 Laboratory: Laboratory Results - last 24 hr 06/19/24 05:28: WBC 7.1, RBC 5.05, Hgb 13.4, Hct 43.0, MCV 85.1, MCH 26.5 L, MCHC 31.2 L, RDW Std Deviation 44.7 H, RDW Coeff of Lee 14.5, Plt Count 240, MPV 10.5, Sodium 143, Potassium 3.9, Chloride 110 H, Carbon Dioxide 26.0, Anion Gap 7, BUN 12, Creatinine 0.68, Estim Creat Clear Calc 91.29, Est GFR (MDRD) Af Amer 112, Est GFR (MDRD) Non-Af 92, BUN/Creatinine Ratio 17.7, Glucose 149 H, Calcium 8.9, Triglycerides 97, Cholesterol 119, LDL Cholesterol 58, VLDL Cholesterol 19, HDL Cholesterol 42 Microbiology: Microbiology 06/18/24 13:46 Mucosa - Nose SARS-CoV-2, Influenza & RSV (PCR) - Final Radiography Diagnostic Testing: Radiology Impression Brain MRI 06/18/24 13:02 IMPRESSION: No acute intracranial abnormality. No evidence of acute cerebral infarction. No significant focal white matter lesions. No middle ear effusion demonstrated. Nonspecific convex protuberance of the soft tissues/subcutaneous fat anterior superior left frontal region, without discrete measurable soft tissue mass or underlying bony abnormality. Suggest correlation with clinical exam findings. Reading Location: [facility] D/ Instructions Discharge Diet: No restrictions DC O2, CPAP, BIPAP Needs Home O2 Discharge instructions: No Meaningful Use Info Meaningful Use Meaningful Use Diagnoses (Choose all that apply): None applicable Ischemic Stroke Statin Dosing Therapy Reference: STATIN DOSE THERAPY REFERENCE: * Patients > 75 years receive moderate or high dose statin therapy. * Patients 75 years or YOUNGER should receive HIGH intensity statin dose unless contraindicated. You will be required to document reason for non-treatment if statin daily dose does not meet guidelines. HIGH DOSE STATIN THERAPY DAILY Atorvastatin > than or = to 40 mg Rosuvastatin > than or = to 20 mg Amlodipine + Atorvastatin > than or = to 2.5/40 mg Ezetimibe + Simvastatin 10/80 mg Simvastatin 80mg Discharge Plan Admission Admit Date/Time: 06/18/24 12:56 Primary Reason for Your Visit: Vertigo Attending Provider: Godwin Lucas Primary Care Provider: Cris Hammond Consulting Providers: Geoffrey Clark; Tyree Peterson; Josie Monroe; Rachna rBown; Tiera Vernon; Christiano Adams; Harriett Do; Jed Sykes; Isaiah Camp; Ede Sanchez; Aleisha Perez; Romaine Bryant; Tonja Jasmine; Zayda Awan; Kyle Newman; Mario Mathias; Gómez Coughlin; Dov Blanton; Olya Wong; Angelica Odell Instructions Additional Instructions / Restrictions: Please take meclizine up to 3 times daily as needed for the next 3 days. Please follow-up with vestibular therapy with physical therapy for your vertigo. Follow-up with your primary care doctor as needed. Discharge Orders/Prescriptions Prescriptions: New meclizine 25 mg Tablet 25 mg PO TID PRN PRN (Reason: Dizziness) 3 Days Qty: 9 0RF Continued flaxseed oil 1,000 mg capsule 1,000 mg PO DAILY Rx Instructions: administer with a meal multivitamin Tablet 1 tab PO DAILY metformin 500 mg tablet 500 mg PO BID Patient Comments: PT STATES SHE TAKES ONCE DAILY, MD AWARE azelaic acid [Finacea] 15 % gel 1 applic topical BID albuterol sulfate 90 mcg/actuation HFA aerosol inhaler 2 puff inhalation Q4-6H PRN (Reason: shortness of breath or wheezing) ipratropium bromide 21 mcg (0.03 %) spray,non-aerosol 2 spray intranasal BID PRN (Reason: allergy symptoms) glipizide 10 mg tablet extended release 24hr 10 mg PO DAILY pioglitazone 15 mg tablet 15 mg PO DAILY Referrals / Follow Up: Cris Hammond MD [Primary Care Provider] - Disposition Disposition (needs filled in before D/C Order can be placed): Home, Self Care Charges/Coding Visit Charges Inpatient E&M: 60756 Disch Hosp >30min
--- NOTE | 2024-06-19 16:04 | CASEMGMT ---
SW did not complete a PHQ 9 as patient did not have a Stroke. Michela ONTIVEROS
--- NOTE | 2024-06-19 16:27 | CASEMGMT ---
Patient has order for discharge. RN CM received script for outpatient vestibular therapy. RN CM in to discuss needs at discharge. Patient provided with outpatient vestibular therapy script and [facility] information. Patient denies needs or help at discharge. Patient had no further questions or concerns.
== END 2024-06-19 17:07 | disposition home or self-care (01) ==
LOC: ED 13:04 → PCU 13:50
PROVIDERS: Admitting Provider Hospitalist; Emergency Provider Emergency Medicine; PCP Family Medicine; Visit Provider Hospitalist
DX: R27.0 Ataxia, unspecified (principal); Z68.41 Body mass index [BMI] 40.0-44.9, adult; E66.813 Obesity, class 3; E11.9 Type 2 diabetes mellitus without complications; R19.7 Diarrhea, unspecified; R11.2 Nausea with vomiting, unspecified; R03.0 Elevated blood-pressure reading, without diagnosis of hypertension; R42 Dizziness and giddiness; Z79.899 Other long term (current) drug therapy; Z79.84 Long term (current) use of oral hypoglycemic drugs
CPT/HCPCS: 96375; 36415; 70450; 70496; 70498; 70551; 80048; 80061; 82962; 83036; 84443; 85025; 85027; 87631; 93005; 93306; 94762; 96374; 97162; 97802; 99221; 99285; Q9957; Q9967; A4216; C8929; G0378; J2405

== ENCOUNTER → 2024-12-20 | Outpatient (CLI) | payer MEDICARE, SELFPAY ==
--- OUTSIDE RECORDS SUMMARY | 2024-12-20 08:56 | XMS RPT_ITS | CCD ---
Author Organization [facility] InformFormerly [facility] Care Team Providers Care University Relations Recruiter Name Role Phone Kaci Polo MD Unavailable Dr. Cris Hammond Primary Care Provider Dr. Cris Hammond Referring Provider [phone] Mike RIOS, MELISA Perez Attending Provider [phone] Geoffrey Clark Consulting Unavailable Cris Hammond Primary Care Unavailable Godwin Lucas Admitting Unavailable Godwin Lucas Attending Unavailable Adeli, Amir Consulting Unavailable Hinduja, Josie Consulting Unavailable Kevin, Rachna Consulting Unavailable Zha, Tiera Consulting Unavailable Bryan, Christiano Consulting Unavailable Ernestina, Harriett Consulting Unavailable Jed Sykes Consulting Unavailable Isaiah Camp Consulting Unavailable Ede Sanchez Consulting Unavailable Aleisha Perez Consulting Unavailable Romaine Bryant Consulting Unavailable Tonja Jasmine Consulting Unavailable Zayda Awan Consulting Unavailable Trent, Josied Victoriano Consulting UnavailMario Young Consulting Unavailable Coughlin, Rami Consulting Unavailable Dov Blanton Consulting Unavailable Olya Wong Consulting Unavailable Angelica Odell Consulting Unavailable Godwin Lucas Consulting Unavailable Lynn Santana Attending Unavailable TxCris huddleston Primary Care Unavailable TxCris huddleston Primary Care Unavailable Cris Hammond Referring Unavailable Angie Roldan Attending Unavailable Geoffrey Clark Consulting Unavailable TxCris huddleston Primary Care Unavailable Godwin Lucas Attending Unavailable Godwin Lucas Admitting Unavailable Adeli, Amir Consulting Unavailable Hinduja, Josie Consulting Unavailable Kevin, Rachna Consulting Unavailable Zha, Tiera Consulting Unavailable Bryan, Christiano Consulting Unavailable Ernestina, Harriett Consulting Unavailable Bittar, Jed Consulting Unavailable Isaiah Camp Consulting Unavailable Ede Sanchez Consulting Unavailable Aleisha Perez Consulting Unavailable Romaine Bryant Consulting Unavailable Tonja Jasmine Consulting Unavailable Zayda Awan Consulting Unavailable Kyle Newman Consulting UnavailMario Young Consulting Unavailable Gómez Coughlin Consulting Unavailable Dov Blanton Consulting Unavailable Olya Wong Consulting Unavailable Angelica Odell Consulting Unavailable Cris Hammond Referring Unavailable Linda Hammondh Attending Unavailable Dharael Cris Primary Care Unavailable Midreel Cris Referring Unavailable Linda Hammondh Attending Unavailable Cris Hammond Primary Care Unavailable Medications Current Medications Medication Drug Class(es) Dates Sig (Normalized) Sig (Original) [id number] 200 actuat albuterol 0.09 mg/actuat metered dose inhaler (1 source) beta2-Adrenergic Agonist Start: 05-26-2023 take 1 puff(s) by inhalation every four to six hours Albuterol Sulfate Active 2 PUFF INHALATION EVERY 4-6 HOURS May 26, 2023 12:00am azelaic acid 0.15 mg/mg topical gel (1 source) Start: 05-20-2022 Azelaic Acid (Finacea) 15 % gel Active 1 APPLIC TOPICAL TWICE A DAY May 20, 2022 12:00am calcium carbonate 1250 mg oral tablet (3 sources) Start: 04-03-2020 take 1 tablet by mouth once daily Calcium Carbonate (Calcium 500) 500 mg calcium (1,250 mg) tablet Active 500 MG PO DAILY April 03, 2020 12:00am glipiZIDE er 10 mg 24 hr extended release oral tablet (2 sources) Sulfonylurea Start: 05-26-2023 take 10 mg by mouth once daily Glipizide Active 10 MG PO DAILY May 26, 2023 12:00am Start: 05-20-2022 End: 05-26-2023 take 2.5 mg by mouth once daily Glipizide Discontinued 2.5 MG PO DAILY May 20, 2022 12:00am May 26, 2023 2:08pm Ipratropium (1 source) Anticholinergic Start: 05-26-2023 Ipratropium Br omide Active 2 SPRAY INTRANASAL TWICE A DAY May 26, 2023 12:00am linseed oil 1000 mg oral capsule (3 sources) Start: 04-03-2020 take 1000 mg by mouth once daily Flaxseed Oil Active 1000 MG PO DAILY April 03, 2020 12:00am administer with a meal metFORMIN hydrochloride 500 mg oral tablet (1 source) Biguanide Start: 05-20-2022 take 500 mg by mouth twice daily Metformin Active 500 MG PO TWICE A DAY May 20, 2022 12:00am Multivitamin preparation (3 sources) Start: 04-03-2020 take 1 tablet by mouth once daily Multivitamin Active 1 TABLET PO DAILY April 03, 2020 12:00am Start: 04-03-2020 take 1 tablet by valery th once daily Multivitamin Active 1 TABLET PO DAILY April 03, 2020 1:00am Completed/Discontinued Medications Medication Drug Class(es) Dates Sig (Normalized) Sig (Original) Dulaglutide (3 sources) GLP-1 Receptor Agonist Start: 04-16-2021 End: 05-20-2022 Dulaglutide (Trulicity) 3 mg/0.5 mL pen injector Discontinued 3 MG SC EVERY WEEK April 16, 2021 12:00am May 20, 2022 2:03pm Start: 04-16-2021 Dulaglutide (T rulicity) 3 mg/0.5 mL pen injector Active 3 MG SC EVERY WEEK April 16, 2021 12:00am Start: 04-16-2021 Dulaglutide (T rulicity) 3 mg/0.5 mL pen injector Active 3 MG SC EVERY WEEK April 16, 2021 1:00am nystatin [id number] unt/ml topical cream (1 source) Polyene Antifungal Start: 01-17-2017 NYSTATIN 10 0000 UNIT/GM CREA twice daily as needed NYSTATIN [id number] Ana Mckeon NP salantra (3 sources) Start: 04-03-2020 End: 05-20-2022 salantra Discontinued TOPICAL April 03, 2020 12:00am May 20, 2022 2:03pm Start: 04-03-2020 salantra Activ e TOPICAL April 03, 2020 12:00am Start: 04-03-2020 salantra Activ e TOPICAL April 03, 2020 1:00am Problems Problem Classification Problem Date Documented Da te Episodic/Chronic Diabetes mellitus without complication (2 sources) Diabetes mellitus; Translations: [Type 2 diabetes mellitus without complications] Onset: 06-25-2024 05-20-2022 Chronic Nausea and vomiting (1 source) Nausea with vomiting, unspecified; Translations: [Nausea with vomiting, unspecified] Onset: 07-04-2024 Episodic Other circulatory disease (1 source) Elevated blood-pressure reading, without diagnosis of hypertension; Translations: [Elevated blood-pressure reading, without diagnosis of hypertension] Onset: 06-25-2024 Episodic Other nervous system disorders (1 source) Ataxia, unspecified; Translations: [Ataxia, unspecified] Onset: 06-25-2024 Episodic Other screening for suspected conditions (not mental disorders or infectious disease) (1 source) Encounter for screening mammogram for malignant neoplasm of breast; Translations: [Encounter for screening mammogram for malignant neoplasm of breast] Onset: 06-17-2024 Episodic Residual codes; unclassified (3 sources) Family history of breast cancer; Translations: [Family history of malignant neoplasm of breast] 04-16-2021 Episodic Unclassified (1 source) No current problems or disability 01-17-2017 Results Test Name Value Interpretation Reference Range Facil ity Basic Metabolic Profile (BMP )on 06-19-2024 BUN/CRE 17.7 RATIO Normal 10-20 [facility] Comment on above: Order Comment: Comme nts: NPO at [place] prior to lipid panel Performed By: #### L 500.2500, L500.4100, L100.0500 ####[facility] [address] [place], [address] CA,Total 8.9 mg/dL Normal 8.5-10.1 [facility] Comment on above: Order Comment: Comme nts: NPO at NV prior to lipid panel Performed By: #### L 500.2500, L500.4100, L100.0500 ####[facility] [address] [place], [address] Chloride [Moles/Vol] 110 mmol/L High 98-107 [facility] Comment on above: Order Comment: Comme nts: NPO at NV prior to lipid panel Performed By: #### L 500.2500, L500.4100, L100.0500 ####[facility] [address] [place], [address] CO2 [Moles/Vol] 26.0 mmol/L Normal 21.0-32.0 [facility] Comment on above: Order Comment: Comme nts: NPO at [place] prior to lipid panel Performed By: #### L 500.2500, L500.4100, L100.0500 ####[facility] [address] [place], [address] Creatinine [Mass/Vol] 0.68 mg/dL Normal 0.55-1.02 [facility] Comment on above: Order Comment: Comme nts: NPO at MN prior to lipid panel Result Comment: The validity of the calculated GFR GFRAA in patients over 70 years has not been determined. Clinical correlation is essential. Performed By: #### L 500.2500, L500.4100, L100.0500 ####[facility] [address] [place], [address] ECRCL 91.29 ml/min Normal [facility] Comment on above: Order Comment: Comme nts: NPO at MN prior to lipid panel Performed By: #### L 500.2500, L500.4100, L100.0500 ####[facility] [address] [place], [address] EST GFR - AA 112 mL/min Normal >60 [facility] Comment on above: Order Comment: Comme nts: NPO at MN prior to lipid panel Result Comment: Afri can Argentine GFR Calc Performed By: #### L 500.2500, L500.4100, L100.0500 ####[facility] [address] [place], [address] GAP 7 Normal 5-15 [facility] Comment on above: Order Comment: Comme nts: NPO at MN prior to lipid panel Performed By: #### L 500.2500, L500.4100, L100.0500 ####[facility] [address] [place], [address] GFR/1.73 sq M.predicted among non-blacks MDRD (S/P/Bld) [Vol rate/Area] 92 mL/min/{1.73_m2} Normal >60 [facility] Comment on above: Order Comment: Comme nts: NPO at MN prior to lipid panel Result Comment: Non- GFR Calc Performed By: #### L 500.2500, L500.4100, L100.0500 ####[facility] [address] [place], [address] Glucose [Mass/Vol] 149 mg/dL High 74-106 [facility] Comment on above: Order Comment: Comme nts: NPO at MN prior to lipid panel Result Comment: Fast ing Glucose result greater than or equal to 126 mg/dL suggests DIABETES MELLITUS per A.D.A. criteria. Performed By: #### L 500.2500, L500.4100, L100.0500 ####[facility] [address] [place], [address] Potassium [Moles/Vol] 3.9 mmol/L Normal 3.5-5.1 [facility] Comment on above: Order Comment: Comme nts: NPO at MN prior to lipid panel Performed By: #### L 500.2500, L500.4100, L100.0500 ####[facility] [address] [place], [address] Sodium [Moles/Vol] 143 mmol/L Normal 136-145 [facility] Comment on above: Order Comment: Comme nts: NPO at MN prior to lipid panel Performed By: #### L 500.2500, L500.4100, L100.0500 ####[facility] [address] [place], [address] Urea nitrogen [Mass/Vol] 12 mg/dL Normal 7-18 [facility] Comment on above: Order Comment: Comme nts: NPO at MN prior to lipid panel Performed By: #### L 500.2500, L500.4100, L100.0500 ####[facility] [address] [place], [address] CBC-Complete Blood Cnt No Di ffon 06-19-2024 Erythrocyte distribution width (RBC) [Ratio] 14.5 % Normal 11.6-14.6 [facility] Comment on above: Performed By: #### L 500.2500, L500.4100, L100.0500 ####[facility] [address] [place], [address] Hematocrit (Bld) [Volume fraction] 43.0 % Normal 37-47 [facility] Comment on above: Performed By: #### L 500.2500, L500.4100, L100.0500 ####[facility] [address] [place], [address] Hemoglobin (Bld) [Mass/Vol] 13.4 g/dL Normal 12.0-15.0 [facility] Comment on above: Performed By: #### L 500.2500, L500.4100, L100.0500 ####[facility] [address] [place], [address] MCH (RBC) [Entitic mass] 26.5 pg Low 27.0-32.0 [facility] Comment on above: Performed By: #### L 500.2500, L500.4100, L100.0500 ####[facility] [address] [place], [address] MCHC (RBC) [Mass/Vol] 31.2 g/dL Low 32-36 [facility] Comment on above: Performed By: #### L 500.2500, L500.4100, L100.0500 ####[facility] [address] [place], [address] MCV (RBC) [Entitic vol] 85.1 fL Normal 81-99 [facility] Comment on above: Performed By: #### L 500.2500, L500.4100, L100.0500 ####[facility] [address] [place], [address] Platelet mean volume (Bld) [Entitic vol] 10.5 fL Normal 6.2-12.0 [facility] Comment on above: Performed By: #### L 500.2500, L500.4100, L100.0500 ####[facility] [address] [place], [address] Platelets (Bld) [#/Vol] 240 10*3/uL Normal 150-450 [facility] Comment on above: Performed By: #### L 500.2500, L500.4100, L100.0500 ####[facility] [address] [place], [address] RBC (Bld) [#/Vol] 5.05 10*6/uL Normal 4.2-5.4 [facility] Comment on above: Performed By: #### L 500.2500, L500.4100, L100.0500 ####[facility] [address] [place], [address] RDW SD 44.7 fl High 35.1-43.9 [facility] Comment on above: Performed By: #### L 500.2500, L500.4100, L100.0500 ####[facility] [address] [place], [address] WBC (Bld) [#/Vol] 7.1 10*3/uL Normal 4.4-11.0 [facility] Comment on above: Performed By: #### L 500.2500, L500.4100, L100.0500 ####[facility] [address] [place], [address] Discharge Instructionon 06-02 Discharge Instruction [facility] Medical Records Department [address] [place] [address] Instructions for Home/Discharge Instructions 06/19/24 1558 MR#: [id number] Acct: [id number] Name: KACI PANG Rep #: [id number] : 1960 64 From: Godwin Lucas DO PCP: Dr. Cris Hammond MD Status:ADM GRANT Discharge Instructions Diet Discharge Diet: No restrictions DC O2, CPAP, BIPAP needs Home O2 Discharge instructions: No Dressing / Incision Discharge Activity: No Restrictions Follow Up Care Test Results: Test results from this visit will be discussed in further detail at your follow-up appointment, if applicable. Discharge Plan Admission Admit Date/Time: 06/18/24 12:56 Primary Reason for Your Visit: Vertigo Attending Provider: Godwin Lucas Primary Care Provider: Cris Hammond Consulting Providers: Geoffrey Clark; Tyree Peterson; Josie Monroe; Rachna Brown; Tiera Vernon; Christiano Adams; Harriett Do; Jed Sykes; Isaiah Camp; Ede Sanchez; Aleisha Perez; Romaine Bryant; Tonja Jasmine; Zayda Awan; Kyle Newman; Mario Mathias; Gómez Coughlin; Dov Blanton; Olya Wong; Angelica Odell Instructions Additional Instructions / Restrictions: Please take meclizine up to 3 times daily as needed for the next 3 days. Please follow-up with vestibular therapy with physical therapy for your vertigo. Follow-up with your primary care doctor as needed. Discharge Orders/Prescriptions Prescriptions: New meclizine 25 mg Tablet 25 mg PO TID PRN PRN (Reason: Dizziness) 3 Days Qty: 9 0RF Continued flaxseed oil 1,000 mg capsule 1,000 mg PO DAILY Rx Instructions: administer with a meal multivitamin Tablet 1 tab PO DAILY metformin 500 mg tablet 500 mg PO BID Patient Comments: PT STATES SHE TAKES ONCE DAILY, MD AWARE azelaic acid [Finacea] 15 % gel 1 applic topical BID albuterol sulfate 90 mcg/actuation HFA aerosol inhaler 2 puff inhalation Q4-6H PRN (Reason: shortness of breath or wheezing) ipratropium bromide 21 mcg (0.03 %) spray,non-aerosol 2 spray intranasal BID PRN (Reason: allergy symptoms) glipizide 10 mg tablet extended release 24hr 10 mg PO DAILY pioglitazone 15 mg tablet 15 mg PO DAILY Referrals / Follow Up: Cris Hammond MD [Primary Care Provider] - Disposition Disposition (needs filled in before D/C Order can be placed): Home, Self Care 06/19/24 1601 Godwin Shayy ZAVALA CC: Rachna Brown; Tonja Jasmine; Mario Mathias; Tiera Vernon MD; Josie Monroe MD; Geoffrey Clark MD; Dr. Tyree Peterson MD; Dr. Christiano Adams MD; Dr. Cris Hammond MD; Dr. Harriett Do MD; Dr. Isaiah Camp MD; Dr. Jed Sykes MD; Dr. Ede Sanchez MD; Dr. Romaine Bryant DO; Dr. Kyle Newman MD; Dr. Zayda Awan MD; Dr. Gómez Coughlin MD; Dr. Dov Blanton MD; Dr. Olya Wong MD; Aleisha Perez DO; Angelica Odell MD Signed Normal [facility] Lipid Profileon 06-19-2024 Cholesterol [Mass/Vol] 119 mg/dL Normal 200 [facility] Comment on above: Order Comment: Comme nts: NPO at NV prior to lipid panel Result Comment: <200 mg/dL Desirable 200-240 mg/dL Borderline >240 mg/dL High Risk Performed By: #### L 500.2500, L500.4100, L100.0500 ####[facility] [address] [place], [address] Cholesterol in HDL [Mass/Vol] 42 mg/dL Normal [facility] Comment on above: Order Comment: Comme nts: NPO at NV prior to lipid panel Result Comment: The drugs N-Acetylcysteine and Metamizole may falsely depress this assay. Reference Range HDL <40 mg/dL Low HDL Cholesterol HDL >or= 60 mg/dL High HDL Cholesterol Performed By: #### L 500.2500, L500.4100, L100.0500 ####[facility] [address] [place], [address] Cholesterol in LDL [Mass/Vol] 58 mg/dL Normal 0-130 [facility] Comment on above: Order Comment: Comme nts: NPO at [place] prior to lipid panel Performed By: #### L 500.2500, L500.4100, L100.0500 ####[facility] [address] [facility] [place], [address] Cholesterol in VLDL [Mass/Vol] 19 mg/dL Normal 5-40 [facility] Comment on above: Order Comment: Comme nts: NPO at MN prior to lipid panel Performed By: #### L 500.2500, L500.4100, L100.0500 ####[facility] [address] [facility] [place], [address] Triglyceride [Mass/Vol] 97 mg/dL Normal [facility] Comment on above: Order Comment: Comme nts: NPO at MN prior to lipid panel Result Comment: The drugs N-Acetylcysteine and Metamizole may falsely depress this assay. Serum Triglycerides Reference Interval Normal <150 mg/dL Borderline high 150 - 199 mg/dL High 200 - 499 mg/dL Very High > or = 500 mg/dL Performed By: #### L 500.2500, L500.4100, L100.0500 ####[facility] [address] [facility] [place], [address] MR/CON.PCM.NEon 06-19-2024 MR/CON.PCM.NE [facility] Medical Records Department [address] [place] [address] Consultation - Neurology 06/19/24 1343 MR#: [id number] Acct: [id number] Name: KACI PANG Rep #: [id number] : 1960 64 From: Tiera Vernon MD PCP: Dr. Cris Hammond MD Status:DIS GRANT Location: [place] [address]-1 Assessment and Plan: Neuro Assessment/Plan KACI PANG is a 64 F with a past medical history of diabetes, being evaluated by Teleneurology for dizziness. Symptoms suggestive of oscillopsia and BPPV. Exam with rotational nystagmus to the R consistent with BPPV. No evidence of strokey symptoms Plan: - outpatient PT and vestibular therapy - task PT to conduct Maria Isabel maneuver I personally attended this patient and spent a total time of 45minutes evaluating this patient including clinical assessment, review of chart, medical history imaging, and determining appropriate treatment and workup. HPI Consult Data Date of Consult: 06/19/24 HPI Narrative HPI Narrative: KACI PANG, is a 64 F who presented to [facility] ED on 06/18/2024 with vertigo. Patient developed acute onset vertigo with nausea and vomiting on the afternoon of 06/17 around 2 PM. She noted that the vertigo was worse with movement and felt like the room was spinning. Started shortly after she got out of bed. It improved with rest but did not fully go away. She also reports mild subjective fevers along with this, stating that she feels hot prior to her vomiting. Denies any recent URIs or other viral syndromes in the past couple weeks. Denies any earache, hearing change or tinnitus. States it has been difficult to focus with her vision but she denies any vision loss or field cuts. She does report having difficulty with balance and walking since this started yesterday. She has never had vertigo before. Given these findings, she came in for further evaluation. In the ED she was found to be hypertensive to the 160s to 190s systolic. She denies any history of hypertension. She otherwise was hemodynamically stable on room air. Initial NIHSS score of 0. [facility]elog[facility] Consultation Nagelic she looks at something she is noticing oscillopsia. PT was in with the patient today but did not perform maneurvers per pt. Tuesday morning felt dizzy and lightheaded and initially thought she was hypoglycemic (she was not). She did fine the rest of the day but then after advent started throwing up severely. That continued until bedtime. And would get better after sitting for a while but then would suddenly get worse. When turning her head she would get instantly sick. No numbness or weakness more on one side than another, no change in voice, no change in vision except that it is moving. No new medications recently. This never happened in the past. No change in hearing, no tinnitus. Vertigo with head movement improved with meclizine. [facility] Medical History Family history of breast cancer History of uterine fibroid Seasonal allergies Rosacea Home Medications ???Medication ???Instructions ???Recorded ???Last Taken ???Type flaxseed oil 1,000 mg capsule 1,000 mg PO DAILY 04/03/20 5 History multivitamin 1 tab PO DAILY 04/03/20 06/17/24 H istory azelaic acid 15 % topical gel 1 applic topical BID 05/20/2206/02 History (Finacea) metformin 500 mg tablet 500 mg PO BID 05/20/22 06/17/24 Hi story albuterol sulfate 90 mcg/actuation 2 puff inhalation Q4-6H PRN 05/03 09/22 Unknown History aerosol inhaler shortness of breath or wheezing glipizide 10 mg tablet, extended 10 mg PO DAILY 05/26/23 06/17/24 H istory release 24 hr ipratropium bromide 21 mcg (0.03 2 spray intranasal BID PRN allergy 05/26/23 06/17/24 History %) nasal spray symptoms pioglitazone 15 mg tablet 15 mg PO DAILY 06/18/24 06/17/24 H istory meclizine 25 mg tablet 25 mg PO TID PRN PRN Dizziness 3 0 06/19/24 Unknown Rx days #9 tabs Allergy/AdvReac Type Severity Reaction Status Date / Time No Known Allergies Allergy Verified 06/07/24 13:49 Family History Father Diabetes Mother Crohns disease Grandmother Breast cancer Aunt Breast cancer Surgical History S/P CHELSIE (total abdominal hysterectomy) History of tonsillectomy Social History Smoking Status: Never smoker alcohol intake: current details: social substance use type: does not use caffeine: Yes what type of physical activity do you participate in: walking, bicycling and weight training frequency: 3-4 times per week seatbelt use: always do you feel safe at home: Yes additional social history: - Aramis- Retired Patient works at [employer] (more content not included)... Normal [facility] Basic Metabolic Profile (BMP )on 06-18-2024 BUN/CRE 21.7 RATIO High 10-20 [facility] Comment on above: Order Comment: REDRA W. PREVIOUS SPECIMEN REJECTED DUE TO HEMOLYSIS. 06/18/24 1046 Kavita Tapia. Performed By: #### L 500.2500 #### [facility] [address] [place], [address] CA,Total 8.4 mg/dL Low 8.5-10.1 [facility] Comment on above: Order Comment: REDRA W. PREVIOUS SPECIMEN REJECTED DUE TO HEMOLYSIS. 06/18/24 1046 Kavita Tapia. Performed By: #### L 500.2500 #### [facility] [address] [place], [address] Chloride [Moles/Vol] 109 mmol/L High 98-107 [facility] Comment on above: Order Comment: REDRA W. PREVIOUS SPECIMEN REJECTED DUE TO HEMOLYSIS. 06/18/24 1046 Kavita Tapia. Performed By: #### L 500.2500 #### [facility] [address] [place], [address] CO2 [Moles/Vol] 20.0 mmol/L Low 21.0-32.0 [facility] Comment on above: Order Comment: REDRA W. PREVIOUS SPECIMEN REJECTED DUE TO HEMOLYSIS. 06/18/24 1046 Kavita Tapia. Performed By: #### L 500.2500 #### [facility] [address] [place], [address] Creatinine [Mass/Vol] 0.64 mg/dL Normal 0.55-1.02 [facility] Comment on above: Order Comment: REDRA W. PREVIOUS SPECIMEN REJECTED DUE TO HEMOLYSIS. 06/18/246 Kavita Tapia. Result Comment: The validity of the calculated GFR GFRAA in patients over 70 years has not been determined. Clinical correlation is essential. Performed By: #### L 500.2500 #### [facility] [address] [place], [address] ECRCL 91.73 ml/min Normal [facility] Comment on above: Order Comment: REDRA W. PREVIOUS SPECIMEN REJECTED DUE TO HEMOLYSIS. 06/18/246 Kavita Tapia. Performed By: #### L 500.2500 #### [facility] [address] [place], [address] EST GFR - AA 119 mL/min Normal >60 [facility] Comment on above: Order Comment: REDRA W. PREVIOUS SPECIMEN REJECTED DUE TO HEMOLYSIS. 06/18/241045 Kavita Tapia. Result Comment: Afri can Argentine GFR Calc Performed By: #### L 500.2500 #### [facility] [address] [place], [address] GAP 8 Normal 5-15 [facility] Comment on above: Order Comment: REDRA W. PREVIOUS SPECIMEN REJECTED DUE TO HEMOLYSIS. 06/18/241045 Kavita Tapia. Performed By: #### L 500.2500 #### [facility] [address] [place], [address] GFR/1.73 sq M.predicted among non-blacks MDRD (S/P/Bld) [Vol rate/Area] 98 mL/min/{1.73_m2} Normal >60 [facility] Comment on above: Order Comment: REDRA W. PREVIOUS SPECIMEN REJECTED DUE TO HEMOLYSIS. 06/18/241045 Kavita Tapia. Result Comment: Non- GFR Calc Performed By: #### L 500.2500 #### [facility] [address] [place], [address] Glucose [Mass/Vol] 190 mg/dL High 74-106 [facility] Comment on above: Order Comment: REDRA W. PREVIOUS SPECIMEN REJECTED DUE TO HEMOLYSIS. 06/18/24 1046 Kavita Tapia. Result Comment: Fast ing Glucose result greater than or equal to 126 mg/dL suggests DIABETES MELLITUS per A.D.A. criteria. Performed By: #### L 500.2500 #### [facility] [address] [place], [address] Potassium [Moles/Vol] 4.5 mmol/L Normal 3.5-5.1 [facility] Comment on above: Order Comment: REDRA W. PREVIOUS SPECIMEN REJECTED DUE TO HEMOLYSIS. 06/18/24 1046 Kavita Tapia. Performed By: #### L 500.2500 #### [facility] [address] [place], [address] Sodium [Moles/Vol] 137 mmol/L Normal 136-145 [facility] Comment on above: Order Comment: REDRA W. PREVIOUS SPECIMEN REJECTED DUE TO HEMOLYSIS. 06/18/24 1046 Kavita Tapia. Performed By: #### L 500.2500 #### [facility] [address] [place], [address] Urea nitrogen [Mass/Vol] 14 mg/dL Normal 7-18 [facility] Comment on above: Order Comment: REDRA W. PREVIOUS SPECIMEN REJECTED DUE TO HEMOLYSIS. 06/18/24 1046 Kavita Moyazano. Performed By: #### L 500.2500 #### [facility] [address] [place], [address] BUN Normal 7-18 [facility] Comment on above: Result Comment: This specimen has been REJECTED due to Laboratory criteria: Hemolyzed. MARIA L has been notified of need of recollection. 06/18/24 1045 Kavita Tapia Performed By: #### L 100.0100, L500.2500 #### [facility] [address] [place], [address] BUN/CRE Normal 10-20 [facility] Comment on above: Result Comment: This specimen has been REJECTED due to Laboratory criteria: Hemolyzed. LANDONMARIBELNABOR has been notified of need of recollection. 06/18/245 Kavita Tapia Performed By: #### L 100.0100, L500.2500 #### [facility] [address] [place], [address] CA,Total Normal 8.5-10.1 [facility] Comment on above: Result Comment: This specimen has been REJECTED due to Laboratory criteria: Hemolyzed. MARIA L has been notified of need of recollection. 06/18/241044 Kavita Tapia Performed By: #### L 100.0100, L500.2500 #### [facility] [address] [place], [address] CL Normal 98-107 [facility] Comment on above: Result Comment: This specimen has been REJECTED due to Laboratory criteria: Hemolyzed. MARIA L has been notified of need of recollection. 06/18/241044 Kavita Tapia Performed By: #### L 100.0100, L500.2500 #### [facility] [address] [facility] [address] CO2 Normal 21.0-32.0 [facility] Comment on above: Result Comment: This specimen has been REJECTED due to Laboratory criteria: Hemolyzed. MARIA L has been notified of need of recollection. 06/18/241044 Kavita Tapia Performed By: #### L 100.0100, L500.2500 #### [facility] [address] [place], [address] CREAT,SERUM Normal 0.55-1.02 [facility] Comment on above: Result Comment: This specimen has been REJECTED due to Laboratory criteria: Hemolyzed. MARIA L has been notified of need of recollection. 06/18/245 Kavita Tapia Performed By: #### L 100.0100, L500.2500 #### [facility] [address] [place], [address] EST GFR Normal >60 [facility] Comment on above: Result Comment: This specimen has been REJECTED due to Laboratory criteria: Hemolyzed. MARIA L has been notified of need of recollection. 06/18/245 Kavita Tapia Performed By: #### L 100.0100, L500.2500 #### [facility] [address] [place], [address] EST GFR - AA Normal >60 [facility] Comment on above: Result Comment: This specimen has been REJECTED due to Laboratory criteria: Hemolyzed. MARIA L has been notified of need of recollection. 06/18/241044 Kavita Tapia Performed By: #### L 100.0100, L500.2500 #### [facility] [address] [place], [address] GAP Normal 5-15 [facility] Comment on above: Result Comment: This specimen has been REJECTED due to Laboratory criteria: Hemolyzed. MARIA L has been notified of need of recollection. 06/18/245 Kavita Tapia Performed By: #### L 100.0100, L500.2500 #### [facility] [address] [place], [address] GLU Normal 74-106 [facility] Comment on above: Result Comment: This specimen has been REJECTED due to Laboratory criteria: Hemolyzed. MARIA L has been notified of need of recollection. 06/18/245 Kavita Tapia Performed By: #### L 100.0100, L500.2500 #### [facility] [address] [place], [address] Potassium Normal 3.5-5.1 [facility] Comment on above: Result Comment: This specimen has been REJECTED due to Laboratory criteria: Hemolyzed. MARIA L has been notified of need of recollection. 06/18/245 Kavita Tapia Performed By: #### L 100.0100, L500.2500 #### [facility] [address] [place], [address] Basic Metabolic Profile (BMP) Normal 136-145 [facility] Comment on above: Result Comment: This specimen has been REJECTED due to Laboratory criteria: Hemolyzed. MARIA L has been notified of need of recollection. 06/18/24 1045 Kavita Tapia Performed By: #### L 100.0100, L500.2500 #### [facility] [address] [place], [address] Bedside Glucoseon 06-18-2024 FINGERSTICK GLU 171 mg/dL High 74-106 [facility] Comment on above: Result Comment: MELISSA MEJIA OF PATIENT CARE PER NURSING PROTOCOL Performed By: #### L 501.080 ####[facility] [address] [place], [address] Brain without Contraston Brain without Contrast [facility] Imaging Services [address] [place] [address] Brain without Contrast MR#: [id number] Acct: [id number] Name: KACI PANG Rep #: [id number] : 1960 F 64 From: Cristian Martinez i DO PCP: Dr. Cris Hammond MD Status: ADM GRANT Study: Brain without Contrast Date of Exam: 06/18/24 Exam# [id number] Ordering Dr: Godwin Lucas DO PROCEDURE: Noncontrast MRI of the brain. REASON FOR EXAM: Vertigo for 2 days. Unsteady gait. Evaluate for stroke. TECHNIQUE: Multiplanar, multisequence MRI images of the brain were obtained without IV contrast. CONTRAST: COMPARISON: Noncontrast CT brain 06/18/2024 FINDINGS: Bones of the calvarium are intact. Included upper cervical spinal cord unremarkable. The orbits, sella, and parasellar structures show no specific abnormality. Paranasal sinuses and mastoid air cells are clear. There is some nonspecific protuberance or convex margin of the soft tissues or subcutaneous fat of the anterior right frontal region on image 17 of the sagittal T1 sequence. No discrete soft tissue mass or underlying bony abnormality. Major basilar intracranial flow voids are present. No extra-axial fluid collection or midline shift. Ramirez-white matter differentiation is maintained. No cerebellopontine angle mass lesion. The basilar cisterns are clear. No areas of restricted diffusion. No significant focal white matter lesions on the FLAIR sequence. No middle ear effusion. Ventricles appear normal in caliber and configuration. MRI/Brain without Contrast IMPRESSION: No acute intracranial abnormality. No evidence of acute cerebral infarction. No significant focal white matter lesions. No middle ear effusion demonstrated. Nonspecific convex protuberance of the soft tissues/subcutaneous fat anterior superior left frontal region, without discrete measurable soft tissue mass or underlying bony abnormality. Suggest correlation with clinical exam findings. Reading [facility] CC: Dr. Godwin Lucas DO; Dr. Cris Hammond MD Desktop Publishing Specialist: Signed Normal [facility] CBC W/Diff, Automatedon - Absolute Lymph 1.55 X10 3/uL Normal 0.83-4.51 [facility] Comment on above: Performed By: #### L 100.0100, L500.2500 #### [facility] [address] [place], [facility] Absolute Neut 5.4 X10 3/uL Normal 2.0-7.7 [facility] Comment on above: Performed By: #### L 100.0100, L500.2500 #### [facility] [address] [facility] [place], [address] Basophils/100 WBC (Bld) 0.5 % Normal 0-1 [facility] Comment on above: Performed By: #### L 100.0100, L500.2500 #### [facility] [address] [place], [address] Eosinophils/100 WBC (Bld) 0.9 % Normal 0-5 [facility] Comment on above: Performed By: #### L 100.0100, L500.2500 #### [facility] [address] [place], [address] Erythrocyte distribution width (RBC) [Ratio] 14.4 % Normal 11.6-14.6 [facility] Comment on above: Performed By: #### L 100.0100, L500.2500 #### [facility] [address] [place], [address] Hematocrit (Bld) [Volume fraction] 45.9 % Normal 37-47 [facility] Comment on above: Performed By: #### L 100.0100, L500.2500 #### [facility] [address] [place], [address] Hemoglobin (Bld) [Mass/Vol] 14.5 g/dL Normal 12.0-15.0 [facility] Comment on above: Performed By: #### L 100.0100, L500.2500 #### [facility] [address] [place], [address] IG% 0.300 Normal 0.0-0.9 [facility] Comment on above: Result Comment: IG% - Immature Granulocytes (promyelocytes, myelocytes and metamyelocytes) > 1% indicates that a LEFT SHIFT is Present. Performed By: #### L 100.0100, L500.2500 #### [facility] [address] [place], [address] Lymphocytes/100 WBC (Bld) 21.0 % Normal 19-41 [facility] Comment on above: Performed By: #### L 100.0100, L500.2500 #### [facility] [address] [place], [address] MCH (RBC) [Entitic mass] 26.8 pg Low 27.0-32.0 [facility] Comment on above: Performed By: #### L 100.0100, L500.2500 #### [facility] [address] [place], [address] MCHC (RBC) [Mass/Vol] 31.6 g/dL Low 32-36 [facility] Comment on above: Performed By: #### L 100.0100, L500.2500 #### [facility] [address] [place], [address] MCV (RBC) [Entitic vol] 84.8 fL Normal 81-99 [facility] Comment on above: Performed By: #### L 100.0100, L500.2500 #### [facility] [address] [place], [address] Monocytes/100 WBC (Bld) 4.6 % Normal 0-10 [facility] Comment on above: Performed By: #### L 100.0100, L500.2500 #### [facility] [address] [place], [address] Neutrophils/100 WBC (Bld) 72.7 % High 47-70 [facility] Comment on above: Performed By: #### L 100.0100, L500.2500 #### [facility] [address] [place], [address] Nucleated RBC (Bld) [#/Vol] 0 10*3/uL Normal 0-5 [facility] Comment on above: Performed By: #### L 100.0100, L500.2500 #### [facility] [address] [place], [address] Platelet mean volume (Bld) [Entitic vol] 10.9 fL Normal 6.2-12.0 [facility] Comment on above: Performed By: #### L 100.0100, L500.2500 #### [facility] [address] [place], [address] Platelets (Bld) [#/Vol] 226 10*3/uL Normal 150-450 [facility] Comment on above: Performed By: #### L 100.0100, L500.2500 #### [facility] [address] [place], [address] RBC (Bld) [#/Vol] 5.41 10*6/uL High 4.2-5.4 [facility] Comment on above: Performed By: #### L 100.0100, L500.2500 #### [facility] [address] [place], [address] RDW SD 44.5 fl High 35.1-43.9 [facility] Comment on above: Performed By: #### L 100.0100, L500.2500 #### [facility] [address] [place], [address] WBC (Bld) [#/Vol] 7.4 10*3/uL Normal 4.4-11.0 [facility] Comment on above: Performed By: #### L 100.0100, L500.2500 #### [facility] [address] [place], [address] Echo Complete W/ Contraston 06-18-2024 Echo Complete W/ Contrast [facility] [address] [place] [address] Echo Complete W/ Contrast 06/18/24 1324 MR#: [id number] Acct: [id number] Name: KACI PANG Rep #: [id number] : 1960 64 From: Lynn Santana MD Attending Dr: Dr. Godwin Lucas, DO Status : ADM GRANT Ordering Dr: Godwin Lucas DO Date: 06/18/24 Location: U Sex: F C Admitted: 06/18/24 Reason For Study Reason For Study: TIA/CVA Procedure This was a 2D Doppler, Color Flow transthoracic echocardiogram. The study was technically difficult. Contrast injection was performed. Exam performed portable in ED. Left Ventricle Normal LV size. Mild concentric left ventricular hypertrophy. The left ventricular ejection fraction is 60 %. Stage 1 diastolic dysfunction. Right Ventricle Normal right ventricle. Atria The left and right atria are normal. Mitral Valve Trivial mitral valve insufficiency. Tricuspid Valve Trivial tricuspid valve insufficiency. Unable to estimate RV systolic pressure due to insufficient tricuspid regurgitant envelope. Aortic Valve Trisinus/trileaflet aortic valve. Pulmonic Valve The pulmonic valve is not well visualized. Great Vessels Normal sized aortic root. Pericardium/Pleural No pericardial effusion. Medication Diluted definity 1ml given slow IV push to enhance endocardial definition. MMode/2D Measurements Calculations LVIDd: 4.5 cm IVSd: 1.1 cm Ao root diam: 3.1 cm LVIDs: 3.3 cm LVPWd: 1.2 cm LA dimension: 4.0 cm RVDd: 3.4 cm FS: 26.2 % LAV(MOD-bp): 52.1 ml LVAd ap4: 35.7 cm2 SV(MOD-sp4): 65.2 ml LAV(MOD-bp) Indexed: 23.3 ml/m2 LVLd ap4: 8.6 cm SI(MOD-sp4): 29.1 ml/m2 LAV(MOD-sp2): 41.2 ml EDV(MOD-sp4): 120.1 ml LAV(MOD-sp4): 56.4 ml EDV(sp4-el): 125.4 ml LVAs ap4: 22.4 cm2 LVLs ap4: 7.8 cm ESV(MOD-sp4): 54.9 ml ESV(sp4-el): 54.2 ml EF(MOD-sp4): 54.3 % EF(sp4-el): 56.8 % SV(sp4-el): 71.2 ml LA A4 area: 20.9 cm2 LA dimension(2D): 3.8 cm RA A4 area: 12.2 cm2 Time Measurements MV dec time: 0.14 sec Doppler Measurements Calculations MV E max george: 76.9 cm/sec Lat Peak E' George: 12.8 cm/sec Med Peak E' George: 8.4 cm/sec MV A max george: 120.0 cm/sec E/E' lat: 6.0 E/E' med: 9.2 MV E/A: 0.64 MV V2 max: 103.9 cm/sec MV dec slope: 548.1 cm/sec2 Ao V2 max: 130.5 cm/sec MV max P.3 mmHg Ao max P.8 mmHg MV V2 mean: 62.4 cm/sec Ao V2 mean: 92.4 cm/sec MV mean P.9 mmHg Ao mean P.9 mmHg MV V2 VTI: 16.5 cm Ao V2 VTI: 29.0 cm AV (velocity ratio): 0.77 LV V1 max: 102.0 cm/sec PA V2 max: 88.7 cm/sec LV V1 max P.2 mmHg LV V1 mean P.5 mmHg LV V1 mean: 75.1 cm/sec LV V1 VTI: 22.5 cm ECHO/Echo Complete W/ Contrast Interpretation Summary Mild concentric left ventricular hypertrophy. The left ventricular ejection fraction is 60 %. Stage 1 diastolic dysfunction. The study was technically difficult. Ordering Physician: Godwin Lucas Referring Physician: Cris Hammond Performed By: Fermin Farr RCS 06/18/241426 Date Lynn Santana MD CC: Dr. Godwin Lucas DO; Dr. Cris Hammond MD Date Dictated: 06/18/24 1324 Date Transcribed: 06/18/24 142 Desktop Publishing Specialist: Signed Normal [facility] Emergency Department Summary on 06-18-2024 Emergency Department Summary [facility] Medical Records Department [address] [place] [address] Emergency Department Summary 06/18/24 MR#: [id number] Acct: [id number] Name: KACI PANG Rep #: [id number] : 1960 64 From: Domingo Khan MD PCP: Dr. Cris Hammond MD Status:REG ER Location: ED HPI History of Present Illness Chief Complaint: Nausea/Vomiting/Diarrh ea Informant: patient and spouse/S.O. Narrative Narrative: 64-year-old female presenting with vomiting started at the same time as vertigo yesterday around 1400 as she got out of bed, sudden onset. She states since then, whenever she gets up or moves her head the vertigo is worse, but it has never gone away and there is a mild baseline of spinning sensation. She states the vomiting does not seem to be associated with the vertigo as it worsens or lessens. She denies any abdominal pain or diarrhea. She has had some subjective fevers, feeling hot that seems to precede her vomiting. No recent URIs or other viral syndromes in the past couple weeks. She denies any earache, hearing change or tinnitus, or roaring/hearing disturbance. She denies headaches. She states has been difficult to focus with her vision but she denies any vision loss or field cuts. She states she has had difficulty with balance and walking since this started yesterday. She has never had vertigo before. She states she additionally feels little lightheaded, and like she needs some fluids because of vomiting. [facility] Medical History Family history of breast cancer History of uterine fibroid Seasonal allergies Rosacea Home Medications ???Medication ???Instructions ???Recorded ???Last Taken ???Type flaxseed oil 1,000 mg capsule 1,000 mg PO DAILY 04/03/20 5 History multivitamin 1 tab PO DAILY 04/03/20 06/17/24 H istory azelaic acid 15 % topical gel 1 applic topical BID 05/20/2206/02 History (Finacea) metformin 500 mg tablet 500 mg PO BID 05/20/22 06/17/24 Hi story albuterol sulfate 90 mcg/actuation 2 puff inhalation Q4-6H PRN 05/03 09/22 Unknown History aerosol inhaler shortness of breath or wheezing glipizide 10 mg tablet, extended 10 mg PO DAILY 05/26/23 06/17/24 H istory release 24 hr ipratropium bromide 21 mcg (0.03 2 spray intranasal BID PRN allergy 05/26/23 06/17/24 History %) nasal spray symptoms ascorbate calcium (vitamin C) 500 500 mg PO DAILY 06/18/24 06/17/24 History mg tablet pioglitazone 15 mg tablet 15 mg PO DAILY 06/18/24 06/17/24 H istory Allergy/AdvReac Type Severity Reaction Status Date / Time No Known Allergies Allergy Verified 06/07/24 13:49 Family History Father Diabetes Mother Crohns disease Grandmother Breast cancer Aunt Breast cancer Surgical History S/P CHELSIE (total abdominal hysterectomy) History of tonsillectomy Social History Smoking Status: Never smoker alcohol intake: current details: social substance use type: does not use caffeine: Yes what type of physical activity do you participate in: walking, bicycling and weight training frequency: 3-4 times per week seatbelt use: always do you feel safe at home: Yes additional social history: - Aramis- Retired Patient works at [employer] ED Constitutional Constitutional ED: Reports chills, fever(s) and subjective Eyes Eyes: Denies change in vision or diplopia ENT ENT ED: Reports vertigo; Denies abnormal hearing, ear pain, rhinorrhea, sore throat or tinnitus Cardiovascular Cardiovascular: Denies chest pain or palpitations Respiratory/Chest Respiratory/Chest: Denies cough or dyspnea Gastrointestinal Gastrointestinal: Reports nausea and vomiting; Denies abdominal pain or diarrhea Genitourinary Genitourinary ED: Denies dysuria or hematuria Musculoskeletal Musculoskeletal: Denies back pain or neck pain Integumentary Denies abscess or rash Neurologic Neurologic: Reports abnormal gait, disequilibrium and dizziness; Denies headache(s), paresthesias or weakness Psychiatric Psychiatric: Denies anxiety or suicidal thoughts EXAM Physical Exam Const Vital Signs: 06/18/24 10:03 06/18/24 10:21 06/18/24 10:21 Temperature 96.6 F L Temperature Source Temporal Pulse Rate 90 103 H Respiratory Rate 16 28 H Blood Pressure 194/78 H 169/73 H Blood Pressure Mean 116 105 Pulse Ox 98 97 98 Oxygen Delivery Method Room Air Room Air Room Air 06/18/24 12:03 Temperature Temperature Source Pulse Rate 92 Respiratory Rate 18 Blood Pressure 160/91 H Blood Pressure Mean 114 Pulse Ox 93 Oxygen Deliver (more content not included)... Normal [facility] H AND P Exam - Hospitaliston 06-18-2024 H&P Exam - Hospitalist [facility] Medical Records Department [address] [place] [address] H P Exam - Hospitalist 06/18/24 1256 MR#: [id number] Acct: [id number] Name: KACI PANG Rep #: [id number] : 1960 64 From: Godwin Lucas DO PCP: Dr. Cris Hammond MD Status:ADM GRANT Location: [place] [address] HPI - General General Date of Admission: 06/18/24 Date of Service: 06/18/24 Chief Complaint: Vertigo HPI Narrative KACI PANG, is a 64 F who presented to [facility] ED on 06/18/2024 with vertigo. Patient developed acute onset vertigo with nausea and vomiting on the afternoon of 06/17 around 2 PM. She noted that the vertigo was worse with movement and felt like the room was spinning. Started shortly after she got out of bed. It improved with rest but did not fully go away. She also reports mild subjective fevers along with this, stating that she feels hot prior to her vomiting. Denies any recent URIs or other viral syndromes in the past couple weeks. Denies any earache, hearing change or tinnitus. States it has been difficult to focus with her vision but she denies any vision loss or field cuts. She does report having difficulty with balance and walking since this started yesterday. She has never had vertigo before. Given these findings, she came in for further evaluation. In the ED she was found to be hypertensive to the 160s to 190s systolic. She denies any history of hypertension. She otherwise was hemodynamically stable on room air. Initial NIHSS score of 0. CT brain and CTA head/neck were unremarkable. However, given her new onset symptoms and concern for possible central etiology, hospitalist was contacted for admission. I saw the patient at bedside in the ED. Patient was laying back comfortably in bed and in no acute distress. She reported mild dizziness with nausea currently, improved from arrival. Continues to have significant dizziness with motion. She otherwise states that she is starting to feel hungry and would like to have some food soon. She denies any current fevers or chills. No other acute concerns at this time. [facility] Medical History Family history of breast cancer History of uterine fibroid Seasonal allergies Rosacea Home Medications ???Medication ???Instructions ???Recorded ???Last Taken ???Type flaxseed oil 1,000 mg capsule 1,000 mg PO DAILY 04/03/20 5 History multivitamin 1 tab PO DAILY 04/03/20 06/17/24 H istory azelaic acid 15 % topical gel 1 applic topical BID 05/20/2206/02 History (Finacea) metformin 500 mg tablet 500 mg PO BID 05/20/22 06/17/24 Hi story albuterol sulfate 90 mcg/actuation 2 puff inhalation Q4-6H PRN 05/03 09/22 Unknown History aerosol inhaler shortness of breath or wheezing glipizide 10 mg tablet, extended 10 mg PO DAILY 05/26/23 06/17/24 H istory release 24 hr ipratropium bromide 21 mcg (0.03 2 spray intranasal BID PRN allergy 05/26/23 06/17/24 History %) nasal spray symptoms ascorbate calcium (vitamin C) 500 500 mg PO DAILY 06/18/24 06/17/24 History mg tablet pioglitazone 15 mg tablet 15 mg PO DAILY 06/18/24 06/17/24 H istory Allergy/AdvReac Type Severity Reaction Status Date / Time No Known Allergies Allergy Verified 06/07/24 13:49 Family History Father Diabetes Mother Crohns disease Grandmother Breast cancer Aunt Breast cancer Surgical History S/P CHELSIE (total abdominal hysterectomy) History of tonsillectomy Social History Smoking Status: Never smoker alcohol intake: current details: social substance use type: does not use caffeine: Yes what type of physical activity do you participate in: walking, bicycling and weight training frequency: 3-4 times per week seatbelt use: always do you feel safe at home: Yes additional social history: - Aramis- Retired Patient works at [employer] Constitutional Constitutional: Denies chills, fatigue, fever(s) or weakness Eyes Eyes: Denies change in vision Cardiovascular Cardiovascular: Denies chest pain Respiratory/Chest Respiratory/Chest: Denies shortness of breath at rest Gastrointestinal Gastrointestinal: Denies abdominal pain Genitourinary Genitourinary: Denies dysuria Musculoskeletal Musculoskeletal: Denies arthralgias or myalgias Neurologic Neurologic: Reports disequilibrium and dizziness; Denies abnormal speech, confusion, focal weakness, headache(s), numbness or tingling Vital Signs Vital Signs Vital Signs: 06/18/24 10:03 06/18/24 10:21 06/18/24 10:21 Temperature 96.6 F L Temperature Source Temporal Pulse Rate 90 103 (more content not included)... Normal [facility] Hemoglobin A1con 06-18-2024 HbA1c (Bld) [Mass fraction] 6.6 % High 3.8-5.6 [facility] Comment on above: Result Comment: Norm al < 5.7 % Prediabetic 5.7 - 6.4 % Diabetic >or= 6.5 % Please note range changes. Performed By: #### L 501.9985, L501.9520 #### [facility] [address] [facility] [address] [place], [place], [address] M100.678on 06-18-2024 M100.678 Pending SARS-CoV-2 (COVID 19) Negative INFLUENZA A Negative INFLUENZA B Negative RSV PCR Negative Normal [facility] Comment on above: Performed By: #### M 100.678 ####[facility] [address] [facility] [address] [place], [place], [address] STROKE Brain/Head without Co nton 06-18-2024 STROKE Brain/Head without Cont [facility] Imaging Services [address] [facility] [place] [address] STROKE Brain/Head without Cont MR#: [id number] Acct: [id number] Name: KACI PANG Rep #: [id number] : 1960 F 64 From: Roger byrnes MD PCP: Dr. Cris Hammond MD Status: REG ER Study: STROKE Brain/Head without Cont Date of Exam: 0 06/18/24 Exam# [id number] Ordering Dr: Domingo Khan MD EXAM: STROKE BRAIN/HEAD WITHOUT CONT CLINICAL HISTORY: Nausea and vomiting. Dizziness and weakness for 2 days. COMPARISON: None. TECHNIQUE: Multiple axial tomographic images were obtained without intravenous contrast administration. Coronal and sagittal reconstruction was obtained as well. FINDINGS: Normal cerebral parenchyma. No evidence of hydrocephalus. No acute abnormality is seen. CT/STROKE Brain/Head without Cont IMPRESSION: No acute abnormality is seen. The results were communicated to Dr. Khan the referring physician. Reading Location: [facility] CC: Dr. Domingo Khan MD; Dr. Cris Hammond MD Desktop Publishing Specialist: Signed Normal [facility] STROKE CTA Head AND Neck W/C onon 06-18-2024 STROKE CTA Head AND Neck W/Con [facility] Imaging Services [address] [place], [place] [address] STROKE CTA Head AND Neck W/Con MR#: [id number] Acct: [id number] Name: KACI PANG Rep #: [id number] : 1960 F 64 From: Roger byrnes MD PCP: Dr. Cris Hammond MD Status: REG ER Study: STROKE CTA Head AND Neck W/Con Date of Exam: 0 06/18/24 Exam# [id number] Ordering Dr: Domingo Khan MD PROCEDURE: STROKE CTA HEAD AND NECK W/CON REASON FOR EXAM: Nausea and vomiting. Dizziness and weakness for 2 days. TECHNIQUE: CTA imaging of the head and neck from the aortic arch to the skull vertex with intravenous contrast. 3D reconstructions. CONTRAST: COMPARISON: None. # of known CTs in the past 12 months: 0 # of known Cardiac Nuclear Medicine Studies in the past 12 months: 0 FINDINGS: Aortic Arch: Normal size and branching pattern. No significant atherosclerotic plaque. Brachiocephalic and Subclavians: Unremarkable RIGHT Carotid: Right CCA: Unremarkable. Right ICA: Minimal plaque at the origin of the right internal carotid artery. Maximum stenosis (NASCET): <50 % Right ECA: Unremarkable. LEFT Carotid: Left CCA: Unremarkable. Left ICA: Unremarkable. Maximum stenosis (NASCET): % Left ECA: Unremarkable. Vertebrals: Codominant. Arise from the subclavians. Both vertebrals form the basilar. RIGHT Vertebral: Unremarkable. LEFT Vertebral: Unremarkable. No intracranial aneurysms or large vascular malformations are identified. Anterior cerebral arteries: Unremarkable. Middle cerebral arteries: Unremarkable. Basilar artery: Unremarkable. Posterior cerebral arteries: Unremarkable. Other major branches of the posterior circulation: Unremarkable. Major venous structures: Unremarkable. Other findings: No lymphadenopathy. Lung apices are clear. Bones are unremarkable. CT/STROKE CTA Head AND Neck W/Con IMPRESSION: RIGHT CAROTID: Minimal plaque at the origin of the left internal carotid artery causing less than 50% stenosis. LEFT CAROTID: Unremarkable VERTEBRALS: Unremarkable INTRACRANIAL: Unremarkable One or more dose reduction techniques were used (e.g., Automated exposure control, adjustment of the mA and/or kV according to patient size, use of iterative reconstruction technique). Reading Location: [facility] CC: Dr. Domingo Khan MD; Dr. Cris Hammond MD Desktop Publishing Specialist: Signed Normal [facility] Thyroid Stim Hormone (TSH)on 06-18-2024 TSH 1.220 uIU/mL Normal 0.358-3.740 [facility] Comment on above: Performed By: #### L 501.9985, L501.9520 #### [facility] [address] 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) Chief Complaint: Annual Allergies No Known Allergies Allergy (Verified 06/07/24 13:49) Medications ???Medication ???Instructions ???Recorded ???Confirmed ???Type calcium carbonate (Calcium 500) 500 mg PO DAILY 04/03/20 06/07/24 History flaxseed oil 1,000 mg capsule 1,000 mg PO DAILY 04/03/20 5 History multivitamin 1 tab PO DAILY 04/03/20 06/07/24 H istory azelaic acid 15 % topical gel 1 applic topical BID 05/20/22/10/24 History (Finacea) metformin 500 mg tablet 500 mg PO BID 05/20/22 06/07/24 Hi story albuterol sulfate 90 mcg/actuation 2 puff inhalation Q4-6H PRN 05/0306/07/24 History aerosol inhaler glipizide 10 mg tablet, extended 10 mg PO DAILY 05/26/23 06/07/24 H istory release 24 hr ipratropium bromide 21 mcg (0.03 2 spray intranasal BID PRN 4 06/07/24 History %) nasal spray PFSH Medical History Family history of breast cancer History of uterine fibroid Seasonal allergies Rosacea Surgical History S/P CHELSIE (total abdominal hysterectomy) History of tonsillectomy Family History Father Diabetes Mother Crohns disease Grandmother Breast cancer Aunt Breast cancer Social History Smoking Status: Never smoker alcohol intake: current details: social substance use type: does not use caffeine: Yes what type of physical activity do you participate in: walking, bicycling and weight training frequency: 3-4 times per week seatbelt use: always do you feel safe at home: Yes additional social history: - Aramis- Retired Patient works at [employer] History 3 Elective abortions Hx Para 2 Spontaneous abortions Hx # Term Pregnancies Ectopic pregnancies Hx # Pregnancies Multiple births # of living children Past Pregnancies Del. Date Name GA/Weeks Outcome Route Bth Weight Infant Gen Labor Lgth Anesthesia Del Locatn Provider FOB Unknown 1982 Simón live - full term Unknown 1983 Jere live - full term HPI Encounter for routine gynecological examination Details: KACI PANG is a 64 year old who presents for annual exam. Sees PCP in 2 weeks for follow up on medications and knee pain. Had mammogram last month. Last PAP: Hyst History of abnormal PAP: [] Last mammogram: 05/31/24 History of abnormal mammogram: [] Colon cancer screening: [] Other preventative health care screenings: PCP Female Reproductive History Menopausal Symptoms: Yes weight change ROS Const Constitutional: Reports system reviewed and no additional complaints, except as documented Cardio Card: Reports system reviewed and no additional complaints, except as documented Resp Resp: Reports system reviewed and no additional complaints, except as documented GI GI: Reports system reviewed and no additional complaints, except as documented; Denies abdominal pain, change in stool character or fecal incontinence : Reports system reviewed and no additional complaints, except as documented; Denies difficulty voiding, dysuria, urinary frequency, urinary incontinence or vaginal discharge Skin Skin/Breast: Reports system reviewed and no additional complaints, except as documented Neuro Neuro: Reports system reviewed and no additional complaints, except as documented Psych Psych: Reports system reviewed and no additional complaints, except as documented; Denies suicidal ideation Endo Endo: Reports system reviewed and no additional complaints, except as documented Exam Const General: cooperative, healthy appearing, comfortable and no acute distress Orientation: alert, awake and oriented x3 Neck Neck: normal visual inspection and full ROM Thyroid: thyroid normal Chest Chest palpation inspection: normal inspection of the chest Breast inspection: normal inspection of the breasts and normal inspection of the axillae Breast palpation: normal palpation of the breasts and normal palpation of the axillae Resp Effort Inspection: normal respiratory effort and able to speak in complete sentences Auscultation: clear to auscultation bilatera (more content not included)... Normal [facility] SCRN MAMM (CAD)W/DEBORAH BILATo n 05-31-2024 SCRN MAMM (CAD)W/DEBORAH BILAT [facility] Imaging Services [address] [place] [address] SCRN MAMM (CAD)W/DEBORAH BILAT MR#: [id number] Acct: [id number] Name: KACI PANG Rep #: [id number] : 1960 F 64 From: Roger byrnes MD PCP: Dr. Cris Hammond MD Status: [facility] Study: SCRN MAMM (CAD)W/DEBORAH BILAT Date of Exam: 05/04 Exam# [id number] Ordering Dr: Cris Hammond MD PROCEDURE: SCRN MAMM (CAD)W/DEBORAH BILAT REASON FOR EXAM: F, Age 64 y/o, grandmother with breast cancer. Aunt with breast cancer. TECHNIQUE: Bilateral screening digital breast tomosynthesis with 2D and 3D images. Computer aided detection. COMPARISON: Prior exam(s) dating back to comparison is made with prior study dated April 01, 2022.. FINDINGS: There are scattered areas of fibroglandular density. Stable small bilateral axillary lymph nodes. No suspicious masses, areas of developing architectural distortion, or suspicious calcifications. Stable examination. BI/SCRN MAMM (CAD)W/DEBORAH BILAT IMPRESSION: BI-RADS 2: BENIGN. RECOMMEND ANNUAL MAMMOGRAPHIC SCREENING. Follow-up code: Routine Follow-up The patient will be notified of the results by letter. Reading Location: [place] [address] CC: Dr. Cris Hammond MD Desktop Publishing Specialist: Signed Normal [facility] CBC W/Diff, Automatedon 07-3 Absolute Lymph 1.75 X10 3/uL Normal 0.83-4.51 [facility] Comment on above: Performed By: #### L 500.4100, L100.0100, L501.9985, L500.4050, L502.0250 ####[facility] [address] [place], [address] Absolute Neut 3.4 X10 3/uL Normal 2.0-7.7 [facility] Comment on above: Performed By: #### L 500.4100, L100.0100, L501.9985, L500.4050, L502.0250 ####[facility] [address] [place], [address] Basophils/100 WBC (Bld) 0.5 % Normal 0-1 [facility] Comment on above: Performed By: #### L 500.4100, L100.0100, L501.9985, L500.4050, L502.0250 ####[facility] [address] [place], [address] Eosinophils/100 WBC (Bld) 2.5 % Normal 0-5 [facility] Comment on above: Performed By: #### L 500.4100, L100.0100, L501.9985, L500.4050, L502.0250 ####[facility] [address] [place], [address] Erythrocyte distribution width (RBC) [Ratio] 14.8 % High 11.6-14.6 [facility] Comment on above: Performed By: #### L 500.4100, L100.0100, L501.9985, L500.4050, L502.0250 ####[facility] [address] [place], [address] Hematocrit (Bld) [Volume fraction] 45.3 % Normal 37-47 [facility] Comment on above: Performed By: #### L 500.4100, L100.0100, L501.9985, L500.4050, L502.0250 ####[facility] [address] [place], [address] Hemoglobin (Bld) [Mass/Vol] 13.9 g/dL Normal 12.0-15.0 [facility] Comment on above: Performed By: #### L 500.4100, L100.0100, L501.9985, L500.4050, L502.0250 ####[facility] [address] [place], [address] IG% 0.200 Normal 0.0-0.9 [facility] Comment on above: Result Comment: IG% - Immature Granulocytes (promyelocytes, myelocytes and metamyelocytes) > 1% indicates that a LEFT SHIFT is Present. Performed By: #### L 500.4100, L100.0100, L501.9985, L500.4050, L502.0250 ####[facility] [address] [place], [address] Lymphocytes/100 WBC (Bld) 30.6 % Normal 19-41 [facility] Comment on above: Performed By: #### L 500.4100, L100.0100, L501.9985, L500.4050, L502.0250 ####[facility] [address] [place], [address] MCH (RBC) [Entitic mass] 25.9 pg Low 27.0-32.0 [facility] Comment on above: Performed By: #### L 500.4100, L100.0100, L501.9985, L500.4050, L502.0250 ####[facility] [address] [place], [address] MCHC (RBC) [Mass/Vol] 30.7 g/dL Low 32-36 [facility] Comment on above: Performed By: #### L 500.4100, L100.0100, L501.9985, L500.4050, L502.0250 ####[facility] [address] [place], [address] MCV (RBC) [Entitic vol] 84.5 fL Normal 81-99 [facility] Comment on above: Performed By: #### L 500.4100, L100.0100, L501.9985, L500.4050, L502.0250 ####[facility] [address] [place], [address] Monocytes/100 WBC (Bld) 6.7 % Normal 0-10 [facility] Comment on above: Performed By: #### L 500.4100, L100.0100, L501.9985, L500.4050, L502.0250 ####[facility] [address] [place], [address] Neutrophils/100 WBC (Bld) 59.5 % Normal 47-70 [facility] Comment on above: Performed By: #### L 500.4100, L100.0100, L501.9985, L500.4050, L502.0250 ####[facility] [address] [place], [address] Nucleated RBC (Bld) [#/Vol] 0 10*3/uL Normal 0-5 [facility] Comment on above: Performed By: #### L 500.4100, L100.0100, L501.9985, L500.4050, L502.0250 ####[facility] [address] [place], [address] Platelet mean volume (Bld) [Entitic vol] 10.8 fL Normal 6.2-12.0 [facility] Comment on above: Performed By: #### L 500.4100, L100.0100, L501.9985, L500.4050, L502.0250 ####[facility] [address] [place], [address] Platelets (Bld) [#/Vol] 237 10*3/uL Normal 150-450 [facility] Comment on above: Performed By: #### L 500.4100, L100.0100, L501.9985, L500.4050, L502.0250 ####[facility] [address] [place], [address] RBC (Bld) [#/Vol] 5.36 10*6/uL Normal 4.2-5.4 [facility] Comment on above: Performed By: #### L 500.4100, L100.0100, L501.9985, L500.4050, L502.0250 ####[facility] [address] [place], [address] RDW SD 45.4 fl High 35.1-43.9 [facility] Comment on above: Performed By: #### L 500.4100, L100.0100, L501.9985, L500.4050, L502.0250 ####[facility] [address] [place], [address] WBC (Bld) [#/Vol] 5.7 10*3/uL Normal 4.4-11.0 [facility] Comment on above: Performed By: #### L 500.4100, L100.0100, L501.9985, L500.4050, L502.0250 ####[facility] [address] [place], [address] Comprehensive Metabolic [facility] 11-29-2023 Albumin [Mass/Vol] 3.8 g/dL Normal 3.2-5.0 [facility] Comment on above: Performed By: #### L 500.4100, L100.0100, L501.9985, L500.4050, L502.0250 ####[facility] [address] [place], [address] Albumin/Globulin [Mass ratio] 1.1 {ratio} Normal 0.9-2.4 [facility] Comment on above: Performed By: #### L 500.4100, L100.0100, L501.9985, L500.4050, L502.0250 ####[facility] [address] [place], [address] ALK P 58 U/L Normal 45-117 [facility] Comment on above: Performed By: #### L 500.4100, L100.0100, L501.9985, L500.4050, L502.0250 ####[facility] [address] [place], [address] ALT [Catalytic activity/Vol] 27 U/L Normal 13-56 [facility] Comment on above: Performed By: #### L 500.4100, L100.0100, L501.9985, L500.4050, L502.0250 ####[facility] [address] [place], [address] AST [Catalytic activity/Vol] 18 U/L Normal 15-37 [facility] Comment on above: Performed By: #### L 500.4100, L100.0100, L501.9985, L500.4050, L502.0250 ####[facility] [address] [place], [address] Bilirubin [Mass/Vol] 0.30 mg/dL Normal 0.20-1.00 [facility] Comment on above: Result Comment: For patients on eltrombopag therapy, use of Dimension Farwell TBIL is not recommended. Performed By: #### L 500.4100, L100.0100, L501.9985, L500.4050, L502.0250 ####[facility] [address] [place], [address] BUN/CRE 20.4 RATIO High 10-20 [facility] Comment on above: Performed By: #### L 500.4100, L100.0100, L501.9985, L500.4050, L502.0250 ####[facility] [address] [place], [address] CA,Total 9.0 mg/dL Normal 8.5-10.1 [facility] Comment on above: Performed By: #### L 500.4100, L100.0100, L501.9985, L500.4050, L502.0250 ####[facility] [address] [place], [address] Chloride [Moles/Vol] 105 mmol/L Normal 98-107 [facility] Comment on above: Performed By: #### L 500.4100, L100.0100, L501.9985, L500.4050, L502.0250 ####[facility] [address] [place], [address] CO2 [Moles/Vol] 27.0 mmol/L Normal 21.0-32.0 [facility] Comment on above: Performed By: #### L 500.4100, L100.0100, L501.9985, L500.4050, L502.0250 ####[facility] [address] [place], [address] Creatinine [Mass/Vol] 0.73 mg/dL Normal 0.55-1.02 [facility] Comment on above: Result Comment: The validity of the calculated GFR GFRAA in patients over 70 years has not been determined. Clinical correlation is essential. Performed By: #### L 500.4100, L100.0100, L501.9985, L500.4050, L502.0250 ####[facility] [address] [place], [address] EST GFR - AA 102 mL/min Normal >60 [facility] Comment on above: Result Comment: Afri can Argentine GFR Calc Performed By: #### L 500.4100, L100.0100, L501.9985, L500.4050, L502.0250 ####[facility] [address] [place], [address] GAP 7 Normal 5-15 [facility] Comment on above: Performed By: #### L 500.4100, L100.0100, L501.9985, L500.4050, L502.0250 ####[facility] [address] [place], [address] GFR/1.73 sq M.predicted among non-blacks MDRD (S/P/Bld) [Vol rate/Area] 85 mL/min/{1.73_m2} Normal >60 [facility] Comment on above: Result Comment: Non- GFR Calc Performed By: #### L 500.4100, L100.0100, L501.9985, L500.4050, L502.0250 ####[facility] [address] [place], [address] Globulin (S) [Mass/Vol] 3.4 g/dL Normal 2.2-4.2 [facility] Comment on above: Performed By: #### L 500.4100, L100.0100, L501.9985, L500.4050, L502.0250 ####[facility] [address] [place], [address] Glucose [Mass/Vol] 142 mg/dL High 74-106 [facility] Comment on above: Result Comment: Fast ing Glucose result greater than or equal to 126 mg/dL suggests DIABETES MELLITUS per A.D.A. criteria. Performed By: #### L 500.4100, L100.0100, L501.9985, L500.4050, L502.0250 ####[facility] [address] [place], [address] Potassium [Moles/Vol] 4.1 mmol/L Normal 3.5-5.1 [facility] Comment on above: Performed By: #### L 500.4100, L100.0100, L501.9985, L500.4050, L502.0250 ####[facility] [address] [place], [address] Sodium [Moles/Vol] 139 mmol/L Normal 136-145 [facility] Comment on above: Performed By: #### L 500.4100, L100.0100, L501.9985, L500.4050, L502.0250 ####[facility] [address] [place], [address] T PROT 7.2 g/dL Normal 6.4-8.2 [facility] Comment on above: Performed By: #### L 500.4100, L100.0100, L501.9985, L500.4050, L502.0250 ####[facility] [address] [place], [address] Urea nitrogen [Mass/Vol] 15 mg/dL Normal 7-18 [facility] Comment on above: Performed By: #### L 500.4100, L100.0100, L501.9985, L500.4050, L502.0250 ####[facility] [address] [place], [address] Hemoglobin A1con 11-29-2023 HbA1c (Bld) [Mass fraction] 6.6 % High 3.8-5.6 [facility] Comment on above: Result Comment: Norm al < 5.7 % Prediabetic 5.7 - 6.4 % Diabetic >or= 6.5 % Please note range changes. Performed By: #### L 500.4100, L100.0100, L501.9985, L500.4050, L502.0250 ####[facility] [address] [place], [address] Lipid Profileon 11-29-2023 Cholesterol [Mass/Vol] 159 mg/dL Normal 200 [facility] Comment on above: Result Comment: <200 mg/dL Desirable 200-240 mg/dL Borderline >240 mg/dL High Risk Performed By: #### L 500.4100, L100.0100, L501.9985, L500.4050, L502.0250 ####[facility] [address] [place], [address] Cholesterol in HDL [Mass/Vol] 57 mg/dL Normal [facility] Comment on above: Result Comment: The drugs N-Acetylcysteine and Metamizole may falsely depress this assay. Reference Range HDL <40 mg/dL Low HDL Cholesterol HDL >or= 60 mg/dL High HDL Cholesterol Performed By: #### L 500.4100, L100.0100, L501.9985, L500.4050, L502.0250 ####[facility] [address] [place], [address] Cholesterol in LDL [Mass/Vol] 85 mg/dL Normal 0-130 [facility] Comment on above: Performed By: #### L 500.4100, L100.0100, L501.9985, L500.4050, L502.0250 ####[facility] [address] [place], [address] Cholesterol in VLDL [Mass/Vol] 17 mg/dL Normal 5-40 [facility] Comment on above: Performed By: #### L 500.4100, L100.0100, L501.9985, L500.4050, L502.0250 ####[facility] [address] [place], [address] Triglyceride [Mass/Vol] 86 mg/dL Normal [facility] Comment on above: Result Comment: The drugs N-Acetylcysteine and Metamizole may falsely depress this assay. Serum Triglycerides Reference Interval Normal <150 mg/dL Borderline high 150 - 199 mg/dL High 200 - 499 mg/dL Very High > or = 500 mg/dL Performed By: #### L 500.4100, L100.0100, L501.9985, L500.4050, L502.0250 ####[facility] [address] [place], [place], [address] Microalb:Creat Ratio,Random URon 11-29-2023 Creatinine [Mass/Vol] 76.20 mg/dL Normal NO RANGE EST. [facility] Comment on above: Performed By: #### L 500.4100, L100.0100, L501.9985, L500.4050, L502.0250 ####[facility] [address] [place], [place], [address] MALB:CRE 9.3 mg/g CRE Normal <30 mg/g CRE [facility] Comment on above: Performed By: #### L 500.4100, L100.0100, L501.9985, L500.4050, L502.0250 ####[facility] [address] [place], [place], [id number] MICROALBUMIN,UR 7.1 mg/L Normal NO RANGE EST. [facility] Comment on above: Performed By: #### L 500.4100, L100.0100, L501.9985, L500.4050, L502.0250 ####[facility] [address] [place], [place], [address] Basophil percentageon 2021 Bilirubin [Mass/Vol] 0.40 mg/dL 0.20-1.00 [facility] Work Phone: Comment on above: For patients on eltr ombopag therapy, use of Dimension [place] TBIL is not recommended. Chloride [Moles/Vol] 105 mmol/L 98-107 [facility] Work Phone: Cholesterol [Mass/Vol] 156 mg/dL <200 [facility] Work Phone: Comment on above: <200 mg/dL Desirable 200-240 mg/dL Borderline >240 mg/dL High Risk Glucose [Mass/Vol] 180 mg/dL 74-106 [facility] Work Phone: Comment on above: Fasting Glucose resu lt greater than or equal to 126 mg/dL suggests DIABETES MELLITUS per A.D.A. criteria. Potassium [Moles/Vol] 4.0 mmol/L 3.5-5.1 [facility] Work Phone: Protein [Mass/Vol] 7.1 g/dL 6.4-8.2 [facility] Work Phone: Sodium [Moles/Vol] 138 mmol/L 136-145 [facility] Work Phone: Triglyceride [Mass/Vol] 99 mg/dL <199 [facility] Work Phone: Comment on above: The drugs N-Acetylcy steine and Metamizole may falsely depress this assay.Serum Triglycerides Reference Interval Normal <150 mg/dL Borderline high 150 - 199 mg/dL High 200 - 499 mg/dL Very High > or = 500 mg/dL Laboratory - Chemistry and C hemistry - challengeon 11-26-2021 ALP [Catalytic activity/Vol] 64 U/L 45-117 [facility] Work Phone: ALT [Catalytic activity/Vol] 36 U/L 13-56 [facility] Work Phone: CO2 [Moles/Vol] 26.0 mmol/L 21.0-32.0 [facility] Work Phone: Globulin (S) [Mass/Vol] 3.5 g/dL 2.2-4.2 [facility] Work Phone: Urea nitrogen/Creatinine [Mass ratio] 28.3 mg/mg 10-20 [facility] Work Phone: No Panel Informationon 11-26 Estimated GFR (MDRD) Amer 102 mL/min >60 [facility] Work Phone: Comment on above: GFR Calc Estimated GFR (MDRD) Non-Af Amer 84 mL/min >60 [facility] Work Phone: Comment on above: Non- GFR Calc Urine Microalbumin/Creati nine Ratio TNP [facility] Work Phone: Comment on above: Test not performed Serum or plasma albumin bret urement (mass/volume)on 11-26-2021 Albumin [Mass/Vol] 3.6 g/dL 3.2-5.0 [facility] Work Phone: Serum or plasma albumin/glob ulin mass ratioon 11-26-2021 Albumin/Globulin [Mass ratio] 1.0 {ratio} 0.9-2.4 [facility] Work Phone: Serum or plasma calcium bret urement (mass/volume)on 11-26-2021 Calcium [Mass/Vol] 9.0 mg/dL 8.5-10.1 [facility] Work Phone: Serum or plasma cholesterol in HDL measurement (mass/volume)on 11-26-2021 Cholesterol in HDL [Mass/Vol] 50 mg/dL >40 [facility] Work Phone: Comment on above: The drugs N-Acetylcy steine and Metamizole may falsely depress this assay. Reference Range HDL <40 mg/dL Low HDL Cholesterol HDL >or= 60 mg/dL High HDL Cholesterol Serum or plasma cholesterol in VLDL measurement (mass/volume)on 11-26-2021 Cholesterol in VLDL [Mass/Vol] 20 mg/dL 5-40 [facility] Work Phone: Serum or plasma creatinine m easurement (mass/volume)on 11-26-2021 Creatinine [Mass/Vol] 0.74 mg/dL 0.55-1.02 [facility] Work Phone: Comment on above: The validity of the calculated GFR & GFRAA in patients over 70 years has not been determined. Clinical correlation is essential. Serum or plasma low density lipoprotein (LDL) cholesterol measurement (mass/volume)on 11-26-2021 Cholesterol in LDL [Mass/Vol] 86 mg/dL 0-130 [facility] Work Phone: Serum or plasma urea nitroge n measurement (mass/volume)on 11-26-2021 Urea nitrogen [Mass/Vol] 21 mg/dL 7-18 [facility] Work Phone: Thin prep Papanicolaou smear with manual screeningon 11-26-2021 Thin prep Papanicolaou smear with manual screening 16 U/L 15-37 [facility] Work Phone: Thin prep Papanicolaou smear with manual screening 7 5-15 [facility] Work Phone: Thin prep Papanicolaou smear with manual screening < 5.0 mg/L NO RANGE EST. [facility] Work Phone: Urine creatinine measurement (mass/volume)on 11-26-2021 Creatinine (U) [Mass/Vol] 39.20 mg/dL NO RANGE EST. [facility] Work Phone: Whole blood hemoglobin A1c/t otal hemoglobin ratio (mass fraction)on 11-26-2021 HbA1c (Bld) [Mass fraction] 7.7 % 3.8-5.6 [facility] Work Phone: Comment on above: Normal < 5.7 % Predi abetic 5.7 - 6.4 % Diabetic >or= 6.5 % Please note range changes. Vital Signs Date Time Vital Sign Value Performing Clinician Erin mathew 05-26-2023 14:05-0500 Body height 165.[address] Cris Hammond Work Phone: [facility] 05-26-2023 14:05-0500 Body mass index (BMI) [Ratio] 45.1 kg/m2 Dr. Cris Hammond Work Phone: [facility] 05-26-2023 14:05-0500 Body weight 122.[address] Cris Hammond Work Phone: [facility] 05-26-2023 14:05-0500 Diastolic blood pressure 86 mm[Hg] Dr. Crsi Hammond Work Phone: [facility] 05-26-2023 14:05-0500 Systolic blood pressure 134 mm[Hg] Dr. Cris Hammond Work Phone: [facility] Encounters Encounter Date Encounter Type Care Provider Facility Start: 06-18-2024 End: 06-19-2024 ambulatory Geoffrey Amber Facility:[facility] Start: 06-07-2024 End: 06-07-2024 ambulatory Cris [place]: 05-31-2024 End: 05-31-2024 ambulatory Cris Miedjaja Facility:[facility] Start: 12-24-2023 Encounter for genera l adult medical examination without abnormal findings Cris Hammond [facility] Start: 11-29-2023 End: 11-29-2023 ambulatory Cris Miedjaja Facility:[facility] Start: 05-26-2023 End: 05-26-[address] Cris Hammond Work Phone: [facility] Work Phone: Start: 05-26-2023 End: 05-26-[address] Cris Hammond Work Phone: [facility] Work Phone: Start: 04-01-2022 End: 04-01-2022 ambulatory [facility] Work Phone: Start: 04-01-2022 End: 04-01-2022 Patient encounter procedure [facility] Start: 11-26-2021 End: 11-26-2021 Patient encounter procedure [facility] [place] Procedures Date Procedure Procedure Detail Performing Clinician Start: 05-26-2023 Screening mammography Cely Hammond Work Phone: Start: 04-01-2022 Screening mammography Plan of Treatment Date Care Activity Detail Author [facility] Immunizations Immunization Date Immunization Notes Care Provider Fa cility 07-31-2020 Covid (Pfizer) [facility] 07-10-2020 Covid (Pfizer) [facility] Payers Date Payer Category Payer Medicare [id number] 2023 Private Health Insurance [id number] 2023 Self-pay [id number] Unknown [id number] Unknown [id number] 2.16.8 [id number] Unknown [id number] 2.16.8 [id number] Unknown [id number] 2.16.8 [id number] Unknown [id number] 2.16.8 [id number] Unknown [id number] 2.16.8 [id number] Unknown [id number] 2.16.8 [id number] Unknown [id number] 2.16.8 [id number] Social History Date Type Detail Facility Start: 04-16-2021 End: 05-26-2023 Tobacco smoking status DEIS Unknown if ever smoked [facility] Start: 1960 Sex Assigned At Female [facility] Discharge summary note 06-19-2024 Note Date & Type Note Facility 06-19-2024 Note [facility] Medical Records Department [address] [place] [id number] Discharge Summary 06/19/24 1601 MR#: [id number] Acct: [id number] Name: KACI PANG Rep #: [id number] : 1960 64 From: Godwin Lucas DO PCP: Dr. Cris Hammond MD Status:ADM GRANT Location: [place] [address] Providers Date of Admission: 06/18/24 Date of Discharge: 06/19/24 Primary Care Physician: Dr. Cris Hammond MD Consultations 06/18/24 14:15 Consult: Tele-Neurology Routine Consulting Provider: [facility] Reason for Consult: Acute Ischemic Stroke/TIA EMERGENT Consult: No MD Notified: Yes Date Notified: 06/18/24 Time Notified: 14:28 Method of Notification: Answering Service Nursing Unit Staff Notify [facility] of Tele-Neurology Consult: Yes Reason For Visit: STROKELIKE SYMPTOMS Diagnosis Discharge Diagnosis (1) Ataxia: Status: Acute Code(s): R27.0 - Ataxia, unspecified (2) Elevated blood pressure reading: Status: Acute Code(s): R03.0 - Elevated blood-pressure reading, without diagnosis of hypertension (3) Diabetes: Status: Acute Code(s): E11.9 - Type 2 diabetes mellitus without complications Medications at Discharge Home Medications flaxseed oil 1,000 mg capsule 1,000 mg PO DAILY 04/03/20 multivitamin 1 tab PO DAILY 04/03/20 azelaic acid 15 % topical gel (Finacea) 1 applic topical BID 05/20/22 metformin 500 mg tablet 500 mg PO BID 05/20/22 albuterol sulfate 90 mcg/actuation aerosol inhaler 2 puff inhalation Q4-6H PRN shortness of breath or wheezing 05/26/23 glipizide 10 mg tablet, extended release 24 hr 10 mg PO DAILY 05/26/23 ipratropium bromide 21 mcg (0.03 %) nasal spray 2 spray intranasal BID PRN allergy symptoms 05/26/23 pioglitazone 15 mg tablet 15 mg PO DAILY 06/18/24 meclizine 25 mg tablet 25 mg PO TID PRN PRN Dizziness 3 days #9 tabs 06/19/24 Hospital Course Operations None Procedures EKG, Transthoracic echo and - (CT brain, CTA head/neck, MRI brain) Summary of Care Provided Minutes Spent on Discharge: 35 Hospital Course: Patient is a 64-year-old female who presented to [facility] ED on 06/18/2024 with new onset vertigo. Short hospital course is notable low. Patient discharged home in stable condition on 06/19. 1. New onset vertigo, CVA ruled out ??? Neurology followed. PT/OT/case management followed. CT brain, CTA head/neck and MRI brain unremarkable. Echo with normal EF and otherwise unremarkable. Lipid panel and TSH normal. A1c 6.6%, stable from previous. Per neurology, symptoms most consistent with BPPV. Recommended 3 days of meclizine as needed and vestibular therapy on discharge. Discharged home in stable condition on 06/19. 2. Type 2 diabetes mellitus ??? A1c 6.6%, stable from previous. Treated with only home metformin while inpatient. Continue home metformin, pioglitazone and glipizide on discharge. 3. Elevated BP readings ??? BP elevated to the 160s to 190s systolic in the ED. Not starting any blood pressure medications for now as we are allowing permissive hypertension in setting of possible stroke. Improving by hospital day 2, opted not to start any antihypertensive agents and recommend close outpatient follow-up with PCP for this. 4. Class III obesity ??? BMI 44 on admit. Encouraged lifestyle modifications. Complicated hospital course, care and prognosis. Total clinical time spent by myself addressing the patient's medical issues, reviewing all the data, and collaborating with patient's care team: 35 minutes. Physical Exam Const alert, oriented x3 and no apparent distress Constitutional Narrative: Pleasant upper middle-aged female, class III obesity, mildly fatigued appearing, otherwise laying back comfortably in bed, conversing normally, in no acute distress. Stable. General Appearance: cooperative and comfortable HEENT normocephalic, head/scalp atraumatic, hearing grossly normal bilaterally, nasal mucous membranes and turbinates normal and moist oral mucous membranes Eyes PERRL, EOMs intact bilaterally and conjunctivae normal Neck full ROM Chest inspection of chest normal Resp normal respiratory effort, normal air movement, no use of accessory muscles and clear to auscultation bilaterally Cardio regular rate, regular rhythm, no murmurs and peripheral pulses 2+ throughout GI normal to inspection, nondistended, normoactive bowel sounds, soft to palpation, non-tender and non- distended Back/Spine normal ROM Extremity normal to inspection, full ROM and no pedal edema Skin no rashes or lesions noted Neuro oriented x3, moves all extremities and no focal motor deficits Coordination / Balance: [id number] test normal Speech: speech normal Motor Exam: strength 5/5 throughout Psych mental status grossly normal Weight / BMI Weight Weight: 120.7 kg Body Mass (more content not included)... [facility] Evaluation note Note Date & Type Note Facility Evaluation note No assessment information availa 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 Juan Jiang MD Family Provider Active Dr. Cris Hammond MD Primary Care Provider Active Team Status: Inactive Member Role Status Dates Dr. Cris Hammond MD Primary Care Provider, Referrin g Provider Active Ana Mckeon [employer]ER, LEV[employer] F[employer]ER-C Attending Provider Active Team Status: Inactive Member Role Status Dates Dr. Cris Hammond MD Primary Care Provider Active Ana Mckeon [employer]ER, LEV[employer] F[employer]ER-C Attending Provider, Referring Provider Active INFORMATION SOURCE (unrecogn ized section and content) DATE CREATED AUTHOR 07/06/2024 [facility] FOR RECORDS PERTAINING TO PATIENTS WHO ARE [...] BE BASED ON THE PRIMARY CLINICAL RECORDS. [employer] provides no warranty or guarantee of the accuracy or completeness of information in this document.
[2024-12-20 10:05] LABS: Hematocrit 44.5 % (37-47); Hemoglobin 14.0 g/dL (12.0-15.0); Immature Granulocytes Count 0.010 X10^3/uL (0.0-0.0); Mean Corp Hgb Conc 31.5 g/dL (32-36); Mean Corpuscular Volume 83.8 fL (81-99); Mean Platelet Vol. 10.8 fl (6.2-12.0); NRBC Flagged by Analyzer 0 % (0-5); Platelet Count 222 K/mm3 (150-450); RBC Distribution Width CV 14.4 % (11.6-14.6); RBC Distribution Width SD 43.5 fl (35.1-43.9); Red Blood Count 5.31 M/mm3 (4.2-5.4); White Blood Count 6.9 K/mm3 (4.4-11.0)
[2024-12-20 10:39] LABS: Creatinine, Urine (random) 47.60 mg/dL (28.00-217.00); Microalbumin,Random Urine < 12.0 mg/L (<20 mg/L)
[2024-12-20 10:49] LABS: AST(SGOT) 17 U/L (<=31); Alanine Aminotransfer ALT/SGPT 24 U/L (<=34); Albumin, Serum 4.1 g/dL (3.4-4.8); Alkaline Phosphatase 63 U/L (35-104); Anion Gap 11 (5-15); BUN 12 mg/dL (4-19); BUN/Creat Ratio 17.2 RATIO (10-20); Calcium,Total 9.1 mg/dL (7.6-11.0); Carbon Dioxide 25.2 mmol/L (21.0-32.0); Chloride 103 mmol/L (98-108); Cholesterol 140 mg/dL (<=200); Globulin 2.7 g/dL (2.2-4.2); Glucose 187 mg/dL (70-99); Low Density Lipoprotein Calc. 73 mg/dL; Potassium 4.5 mmol/L (3.3-5.1); Triglycerides 93 mg/dL; Very Low Density Lipoprotein 19 mg/dL (5-40); cholesterol:hdl ratio screen 2.89
== END | disposition home or self-care (01) ==
LOC: MTLAB 08:32
PROVIDERS: PCP Family Medicine; Referring Provider Family Medicine; Visit Provider Family Medicine
DX: Z00.00 Encounter for general adult medical examination without abnormal findings (principal); E66.01 Morbid (severe) obesity due to excess calories; E11.9 Type 2 diabetes mellitus without complications
CPT/HCPCS: 36415; 80053; 80061; 82043; 82570; 83036; 85025